=== PATIENT | male | born 1950 | race Caucasian/White ===

== ENCOUNTER 2025-02-10 15:53 | Inpatient (IN) | payer MEDICARE ==
[~2025-02-10] VITALS: Ht 180.3 cm; Wt 94.0 kg
[2025-02-10 16:21] LABS: BASOPHILS ABSOLUTE AUTO 0.08 K/mm3 (0.00-0.23); BASOPHILS PERCENT AUTO 1 % (0-2); EOSINOPHILS PERCENT AUTO 1 % (0-6); Hematocrit 41.5 % (37.0-53.0); IMMATURE GRAN ABSOLUTE AUTO 0.07 K/mm3 (0.00-0.10); IMMATURE GRAN PERCENT AUTO 1 % (0-1); LYMPHOCYTES ABSOLUTE AUTO 2.02 K/mm3 (0.84-5.20); LYMPHOCYTES PERCENT AUTO 13 % (21-46); MONOCYTES ABSOLUTE AUTO 0.69 K/mm3 (0.16-1.47); MONOCYTES PERCENT AUTO 4 % (4-13); Mean Corpuscular HGB 26.1 pg (26.0-34.0); Mean Corpuscular HGB Conc 31.3 g/dL (31.5-36.5); Mean Corpuscular Volume 83 fL (80-100); Mean Platelet Volume 10.7 fL (9.1-12.4); NEUTROPHILS ABSOLUTE AUTO 12.45 K/mm3 (1.96-9.15); NEUTROPHILS PERCENT AUTO 80 % (41-73); Platelet Count 341 K/mm3 (150-400); RDW Coefficient Variation 15.3 % (11.7-14.2); RDW Standard Deviation 46.2 fL (35.1-46.3); Red Blood Cell Count 4.99 M/mm3 (4.30-5.90); White Blood Cell Count 15.51 K/mm3 (4.00-11.30)
[2025-02-10 16:40] LABS: Ethanol (Alcohol), Blood, Med <3 mg/dL
[2025-02-10 16:43] LABS: Alanine Aminotransfer (ALT/SGP 40 U/L (12-78); Albumin, Blood 2.8 g/dL (3.4-5.0); Albumin/Globulin Ratio 0.6 (0.8-1.8); Alk Phos 112 U/L (50-136); Anion Gap 15 mmol/L (3-11); Aspartate Aminotrans (AST/SGOT 55 U/L (12-37); Bilirubin, Total 0.9 mg/dL (0.1-1.0); Blood Urea Nitrogen 28 mg/dL (8-24); Bun/Creatinine Ratio 19.2 (12.0-20.0); CO2, Blood 27 mmol/L (21-32); Chloride, Blood 102 mmol/L (98-108); Creatinine, Blood 1.46 mg/dL (0.60-1.20); Globulin, Blood 4.5 g/dL (2.2-4.0); Glomerular Filtration Rate 50 (60-); Glucose, Blood 102 mg/dL (70-99); Potassium, Blood 2.9 mmol/L (3.5-5.5); Sodium, Blood 141 mmol/L (136-145); Total Protein, Blood 7.3 g/dL (6.4-8.2)
[2025-02-10] MEDS ORDERED: Potassium Chloride 40 MEQ in NS 250 ML IV ONE (17:25)
[2025-02-10] MEDS ORDERED: Lactated Ringer's 1,000 ML IV ONE ×2 (17:25→19:25)
[2025-02-10 17:52] LABS: Magnesium, Blood 2.5 mg/dL (1.6-2.4)
[2025-02-10 20:43] LABS: Source, Urine Clean Catch
[2025-02-10 20:46] LABS: Bilirubin, Urine Neg (Neg); Blood, Urine 2+ (Neg); Glucose Qualitative, Urine Neg (Neg); Ketones, Urine 2+ (Neg); Leukocyte Esterase, Urine Neg (Neg); Nitrite, Urine Neg (Neg); Protein, Urine 2+ (Neg); Specific Gravity, Urine 1.015 (1.003-1.022); Urobilinogen, Urine 1+ (Normal)
[2025-02-10 20:53] LABS: Amorphous Light (0-Heavy); Appearance, Urine Hazy (Clear); Bacteria Rare /hpf; Color, Urine Yellow (P-Yellow); Hyaline Casts 25-50 /lpf (0-2); Mucus Not Seen (0-Heavy); Red Blood Cells, Urine 0-2 /hpf (0-2); Squamous Epithelial Cells Few /hpf (Few); White Blood Cells, Urine 0-2 /hpf (0-5)
[2025-02-10 20:56] LABS: U Amphetamine Screen Not Detected; U Barbituate Screen Not Detected; U Benzodiazapine Screen Not Detected; U Buprenorphine Screen Not Detected; U Cannabinoids Screen Not Detected; U Cocaine Screen Not Detected; U Methadone Screen Not Detected; U Methamphetamine Screen Not Detected; U Opiates Screen Not Detected; U Oxycodone Screen Not Detected; U Phencyclidine Screen Not Detected
[2025-02-10] MEDS ORDERED: Metoprolol Tartrate 25 MG Tab PO SCH (21:00)
[2025-02-10] MEDS ORDERED: Metoprolol Tartrate 1 MG/ML 5 ML VIAL IV ONE ×2 (21:00→22:15)
[2025-02-10] MEDS ORDERED: Ondansetron HCl 2 MG / ML 2ML Vial IV PRN (21:10)
[2025-02-10] MEDS ORDERED: NS 1,000 ML IV SCH (21:15)
[2025-02-10] MEDS ORDERED: Potassium Chloride 20 MEQ TabCR PO ONE (22:00)
[2025-02-10 22:05] LABS: Thyroid Stimulating Hormone 0.937 uIU/mL (0.360-4.800)
[2025-02-10 22:38] VITALS: BP 131/90
[2025-02-10 23:24] VITALS: BP 111/91
--- NOTE | 2025-02-10 23:41 | NUR ---
ASSUMPTION OF CARE REPORT RECIEVED FROM KIERSTEN BACON. PT ARRIVEDTO PCU VIA GUNERY AND WAS SLID TO PCU BED. PT ALERT, ORIETNED TO NAME/, LOCATION, SITUATION. PT DENIES ANY MEDICATION/MEDICAL HX. HR IN THE 80'S-120'S, AFIB. HE DENIES ANY CP/PRESSURE, NUMB/TINGLING, SBP STABLE. O2 >92% ON RA, DENIES ANY SOB. +BS, HE REPORTS TENDER/PAIN OF LEFT LOWER ABD. HE REPORTS THE PAIN STARTED AFTER HE FELL AT HOME BEFORE COMIGN HERE. PT UP AND AMBULATED TO BATHROOM WITH SBA AND FWW. HE HAS NS RUNNING PER EMAR. HE DENIES ANY QUESTIONS AT THIS TIME. PT ORIENTED TO ROOM/CALL LIGHT. CALL LIGHT IN REACH. WILL MONITOR PT.
[2025-02-11 00:34] VITALS: BP 128/74
[2025-02-11 04:09] VITALS: BP 149/94
[2025-02-11 05:15] LABS: BASOPHILS ABSOLUTE AUTO 0.06 K/mm3 (0.00-0.23); BASOPHILS PERCENT AUTO 0 % (0-2); EOSINOPHILS PERCENT AUTO 3 % (0-6); Hematocrit 36.8 % (37.0-53.0); Hemoglobin 11.4 g/dL (13.5-17.5); IMMATURE GRAN ABSOLUTE AUTO 0.08 K/mm3 (0.00-0.10); IMMATURE GRAN PERCENT AUTO 1 % (0-1); LYMPHOCYTES ABSOLUTE AUTO 1.63 K/mm3 (0.84-5.20); LYMPHOCYTES PERCENT AUTO 11 % (21-46); MONOCYTES ABSOLUTE AUTO 0.73 K/mm3 (0.16-1.47); MONOCYTES PERCENT AUTO 5 % (4-13); Mean Corpuscular HGB 26.1 pg (26.0-34.0); Mean Corpuscular Volume 84 fL (80-100); Mean Platelet Volume 11.1 fL (9.1-12.4); NEUTROPHILS PERCENT AUTO 80 % (41-73); Platelet Count 274 K/mm3 (150-400); RDW Coefficient Variation 15.6 % (11.7-14.2); Red Blood Cell Count 4.37 M/mm3 (4.30-5.90)
--- NOTE | 2025-02-11 05:26 | NUR ---
SHIFT SUMMARY PT ALERT, ORIENTED TO SELF, PLACE, SITUATION, BUT UNSURE OF YEAR. HR IN THE 70'S-90'S, AFIB. DENIES CP/PRESSURE, NUMB/TINGLING, SBP STABLE. O2 >92% ON RA, HE DENIES ANY SOB. PT DOES STILL HAVE SOME RIGHT SIDED ABD PAIN R/T FALL AT HOME PRIOR TO ADMISSION, NO BRUISING IN THE AREA. NS RUNNING PER EMAR. NO ACUTE CAHNGES T/O SHIFT. PT DENIES ANY QUESTIONS OR CONCERNS AT THIS TIME. WILL MONITOR PT AND REPORT TO ONCOMING RN.
[2025-02-11 05:29] LABS: International Normalized Ratio 1.09; Prothrombin Time Results 11.6 Sec (9.7-11.5)
[2025-02-11 05:44] LABS: Magnesium, Blood 2.1 mg/dL (1.6-2.4)
[2025-02-11 05:45] LABS: Albumin, Blood 2.3 g/dL (3.4-5.0); Albumin/Globulin Ratio 0.6 (0.8-1.8); Bilirubin, Total 0.5 mg/dL (0.1-1.0); Bun/Creatinine Ratio 20.4 (12.0-20.0); Calcium, Blood 8.1 mg/dL (8.5-10.1); Creatinine, Blood 1.37 mg/dL (0.60-1.20); Globulin, Blood 3.9 g/dL (2.2-4.0); Potassium, Blood 2.9 mmol/L (3.5-5.5); Total Protein, Blood 6.2 g/dL (6.4-8.2)
[2025-02-11] MEDS ORDERED: Potassium Chloride 20 MEQ TabCR PO ONE (06:00)
[2025-02-11] MEDS ORDERED: Potassium Chloride 40 MEQ in NS 250 ML IV ONE (06:30)
--- NOTE | 2025-02-11 06:51 | NUR ---
UPDATE PT HAD MORNING LABS. POTASSIUM CAME BACK AT 2.9. PROVIDER CALLED AND NOTIFIED. ORDERS FOR 40 MEQ OF POTASSIUM AND 40 MEQ IV POTASSIUM PLACED AND BMP FOR 1230 TODAY TO RECHECK LEVELS. WILL MONITOR PT.
[2025-02-11] MEDS ORDERED: Polyethylene Glycol 3350 17 gm PO PRN (07:55)
[2025-02-11] MEDS ORDERED: Acetaminophen 325 MG TABLET PO PRN (07:55)
[2025-02-11] MEDS ORDERED: TraZODone HCl 50 MG Tab PO PRN (07:55)
[2025-02-11] MEDS ORDERED: HYDROmorphone HCl/Pf 1MG SYR IV PRN (07:55)
[2025-02-11] MEDS ORDERED: OxyCODONE HCL 5 MG TAB PO PRN (07:55)
[2025-02-11] MEDS ORDERED: Enoxaparin 40 MG/0.4 ML SYR SC SCH (08:00)
[2025-02-11] MEDS ORDERED: Labetalol HCL 5 MG/ML 4ML Injection (Single Dose) IV PRN (08:05)
[2025-02-11 08:16] VITALS: BP 120/99
[2025-02-11] MEDS ORDERED: Docusate Sodium/Senna 1 Tab PO SCH (09:00)
[2025-02-11 11:27] VITALS: BP 128/86
[2025-02-11 13:10] LABS: Bun/Creatinine Ratio 21.6 (12.0-20.0); Calcium, Blood 7.9 mg/dL (8.5-10.1); Creatinine, Blood 1.16 mg/dL (0.60-1.20); Potassium, Blood 3.5 mmol/L (3.5-5.5)
[2025-02-11 15:50] VITALS: BP 125/73
--- NOTE | 2025-02-11 18:04 | NUR ---
End of shift note. Pt was very sleepy this morning but has been more awake this afternoon. Pt is A&O2-3, with noted forgetfulness. Possible [place] or maybe selective hearing. Pt seems to only respond when he wants to. Difficult to determine true mentation because he talks so little. Pt has been OOB multiple times ambulating to the bathroom, SBA with FWW for safety and cord management. Pt does attempt to get OOB without calling, bed alarm is active. Fair PO intake this shift. Fair output. Pt gave verbal permission to give an update to friend/neighbor Kwadwo ([phone]). She stated that she would be willing to give him a ride home at time of discharge. She also reported that he lives a very isolated lifestyle at baseline and rarely talks to anyone. No outside friends or family that she is aware of. According to Kwadwo, Pts house was in a state of disarray when EMS came to check on him. She is going to follow up with the Director Of Home Health Services's office. Pt is able to make needs known, call light is within reach but Pt has yet to use the call light button. Education provided.
[2025-02-11 19:34] VITALS: BP 117/79
[2025-02-12 00:15] VITALS: BP 139/85
[2025-02-12 03:44] VITALS: BP 134/80
--- NOTE | 2025-02-12 05:36 | NUR ---
SHIFT SUMMARY PT ALERT, ORIENTED TO SELF, PLACE, SITUATION, UNABLE TO STATE YEAR. HE IS CONFUSED AT TIMES. PT EDUCATED ON IMPORTANCE OF USING CALL LIGHT WHEN HE HAS TO GO TO THE BATHROOM BUT HE DOES NOT USE CALL LIGHT. BED ALARM ON. HR IN THE 80'S, WAP RHYTHM. HE DENIES ANY CP/PRESSURE, NUMB/TINLING, SBP STABLE. 02 >90% ON RA, HE DENIES ANY SOB. HE DOES HAVE SOME RIGHT SIDED ABD PAIN, HE REPORTS FALLING ON THAT SIDE AT HOME. +BS, HE DENIES ANY N/V. PT HAS HAD 2 EPISODES OF LOOSE STOOLS T/O SHIFT. PT HAS FLUIDS INFUSING AT 100. HE DENIES ANY QUESTIONS. BED IN LOWEST POSITION, BED ALARM ON, CALL LIGHT IN REACH. WILL MONITOR PT AND REPORT TO ONCOMING RN.
[2025-02-12 06:14] LABS: BASOPHILS ABSOLUTE AUTO 0.07 K/mm3 (0.00-0.23); BASOPHILS PERCENT AUTO 1 % (0-2); EOSINOPHILS ABSOLUTE AUTO 0.35 K/mm3 (0.00-0.68); EOSINOPHILS PERCENT AUTO 3 % (0-6); Hematocrit 32.9 % (37.0-53.0); Hemoglobin 10.2 g/dL (13.5-17.5); IMMATURE GRAN ABSOLUTE AUTO 0.08 K/mm3 (0.00-0.10); IMMATURE GRAN PERCENT AUTO 1 % (0-1); LYMPHOCYTES PERCENT AUTO 12 % (21-46); MONOCYTES ABSOLUTE AUTO 0.82 K/mm3 (0.16-1.47); MONOCYTES PERCENT AUTO 6 % (4-13); Mean Corpuscular HGB 26.1 pg (26.0-34.0); Mean Corpuscular Volume 84 fL (80-100); Mean Platelet Volume 11.1 fL (9.1-12.4); NEUTROPHILS ABSOLUTE AUTO 10.73 K/mm3 (1.96-9.15); NEUTROPHILS PERCENT AUTO 79 % (41-73); Platelet Count 240 K/mm3 (150-400); RDW Coefficient Variation 15.7 % (11.7-14.2); RDW Standard Deviation 47.4 fL (35.1-46.3); Red Blood Cell Count 3.91 M/mm3 (4.30-5.90); White Blood Cell Count 13.65 K/mm3 (4.00-11.30)
[2025-02-12 07:05] LABS: Magnesium, Blood 1.7 mg/dL (1.6-2.4)
[2025-02-12 07:06] LABS: Albumin, Blood 2.2 g/dL (3.4-5.0); Albumin/Globulin Ratio 0.6 (0.8-1.8); Bilirubin, Total 0.5 mg/dL (0.1-1.0); Bun/Creatinine Ratio 17.1 (12.0-20.0); Calcium, Blood 7.8 mg/dL (8.5-10.1); Creatinine, Blood 1.11 mg/dL (0.60-1.20); Globulin, Blood 3.7 g/dL (2.2-4.0); Phosphorus, Blood 1.9 mg/dL (2.5-4.9); Total Protein, Blood 5.9 g/dL (6.4-8.2)
[2025-02-12 08:16] VITALS: BP 131/77
[2025-02-12] MEDS ORDERED: Potassium Chloride 10 Meq Tablet SA PO ONE (09:10)
[2025-02-12] MEDS ORDERED: Potassium Phosphate Dibasic 30 MM in Dextrose 5% 500 ML IV STA (09:15)
[2025-02-12 11:37] VITALS: BP 139/70
[2025-02-12 16:49] VITALS: BP 127/95
[2025-02-12 16:57] LABS: Hematocrit 36.6 % (37.0-53.0); Hemoglobin 11.4 g/dL (13.5-17.5); Mean Corpuscular HGB Conc 31.1 g/dL (31.5-36.5); Mean Corpuscular Volume 83 fL (80-100); Mean Platelet Volume 10.9 fL (9.1-12.4); Platelet Count 232 K/mm3 (150-400); RDW Coefficient Variation 15.7 % (11.7-14.2); RDW Standard Deviation 47.5 fL (35.1-46.3); Red Blood Cell Count 4.39 M/mm3 (4.30-5.90); White Blood Cell Count 12.19 K/mm3 (4.00-11.30)
[2025-02-12 17:13] LABS: Bun/Creatinine Ratio 14.3 (12.0-20.0); Calcium, Blood 7.7 mg/dL (8.5-10.1); Creatinine, Blood 1.12 mg/dL (0.60-1.20); Phosphorus, Blood 3.8 mg/dL (2.5-4.9); Potassium, Blood 3.4 mmol/L (3.5-5.5)
[2025-02-12] MEDS ORDERED: NS 1,000 ML IV ONE (17:40)
[2025-02-12 17:52] LABS: Base Excess Venous 0 mmol/L; PCO2 Venous 39.9 mmHg (38-42)
--- NOTE | 2025-02-12 18:09 | NUR ---
SHIFT SUMMARY PT A/OX3 AT BEGINNING OF SHIFT, PT MORE CONFUSED TOWARDS END OF SHIFT. PT DID NOT USE CALL LIGHT AT ALL DURING SHIFT, SET OFF BED ALARM MULTIPLE TIMES. PT ABLE TO AMBULATE TO BATHROOM USING FWW AND 1-2 PER ASSIST. TOWARDS END OF SHIFT, PT STOOD UP SETTING OFF BED ALRAM BUT PT WAS NOT ABLE TO ARTICULATE WHERE HE WANTED TO GO OR WHY HE STOOD UP. 3 STAFF MEMBERS WERE REQUIRED TO ASSIST PT BACK TO BED AFTER PT STOOD IN BATHROOM FOR ROUGHLY 15 MINUTES. NOTIFIED OF INCREASED CONFUSION. PUREWICK PUT IN PLACE AND PT INSTRUCTED NOT TO GET UP ON HIS OWN. NOTIFIED PT OF CURRENT IMAGING RESULTS, UNSURE IF PT IS RETAINING INFORMATION. PALLIATIVE UPDATED AND FOLLOWING CASE. NS RUNNING PER ORDER. PT RECIEVED 1L BOLUS FOR ELEVATED LACTIC PER ORDER.
[2025-02-12 19:25] VITALS: BP 167/84
[2025-02-13] VITALS (7 sets, daily range): BP systolic 127–171; BP diastolic 79–111
[2025-02-13 04:48] LABS: BASOPHILS ABSOLUTE AUTO 0.05 K/mm3 (0.00-0.23); BASOPHILS PERCENT AUTO 0 % (0-2); EOSINOPHILS ABSOLUTE AUTO 0.29 K/mm3 (0.00-0.68); EOSINOPHILS PERCENT AUTO 2 % (0-6); Hematocrit 30.8 % (37.0-53.0); Hemoglobin 9.7 g/dL (13.5-17.5); IMMATURE GRAN ABSOLUTE AUTO 0.11 K/mm3 (0.00-0.10); IMMATURE GRAN PERCENT AUTO 1 % (0-1); LYMPHOCYTES ABSOLUTE AUTO 1.89 K/mm3 (0.84-5.20); LYMPHOCYTES PERCENT AUTO 15 % (21-46); MONOCYTES ABSOLUTE AUTO 1.19 K/mm3 (0.16-1.47); MONOCYTES PERCENT AUTO 9 % (4-13); Mean Corpuscular HGB Conc 31.5 g/dL (31.5-36.5); Mean Corpuscular Volume 83 fL (80-100); Mean Platelet Volume 11.2 fL (9.1-12.4); NEUTROPHILS ABSOLUTE AUTO 9.43 K/mm3 (1.96-9.15); NEUTROPHILS PERCENT AUTO 73 % (41-73); Platelet Count 209 K/mm3 (150-400); RDW Coefficient Variation 15.8 % (11.7-14.2); RDW Standard Deviation 47.8 fL (35.1-46.3); Red Blood Cell Count 3.73 M/mm3 (4.30-5.90); White Blood Cell Count 12.96 K/mm3 (4.00-11.30)
[2025-02-13 05:07] LABS: Bun/Creatinine Ratio 13.3 (12.0-20.0); Calcium, Blood 7.3 mg/dL (8.5-10.1); Creatinine, Blood 0.98 mg/dL (0.60-1.20); Potassium, Blood 2.8 mmol/L (3.5-5.5)
--- NOTE | 2025-02-13 05:57 | NUR ---
SHIFT SUMMARY PT ALERT, ORIENTED TO NAME/, PLACE, AND WHY HE IS HERE. PT ABLE TO ANSWER ORIENTATION QUESTIONS BUT VERY CONFUSED AND NOT ABLE TO FULLY FOLLOW COMMANDS. HE IS NOT EASILY REDIRECTABLE. PT PULLING AT CORDS T/O SHIFT. BED ALARM ON. HR IN THE 80'S, WAP. HE DENIED ANY CP, NUMBNESS/TINGLING, SBP STABLE. O2 >90% ON RA, DENIED ANY SOB. PT HAS PUREWICK IN PLACE, DRAINING YELLOW URINE. PT WITH 2 LOOSE BOWEL MOVEMENTS T/O SHIFT, SMALL AMOUNT OF BLOOD NOTED IN STOOL. FLUIDS INFUSING PER EMAR. PT HAD MORNING LABS, POTASSIUM CAME BACK AT 2.8, PROVIDER NOTIFIED. ORDER PLACED FOR SUPPLEMENTAL POTASSIUM. BED IN LOWEST POSITION, CALL LIGHT IN REACH. WILL MONITOR PT AND REPORT TO ONCOMING RN.
[2025-02-13] MEDS ORDERED: Potassium Chloride 20 MEQ TabCR PO SCH (08:00)
--- NOTE | 2025-02-13 17:37 | NUR ---
PALLIATIVE CARE VISIT: MET WITH PT AT 1530 TODAY IN HIS ROOM. UPON ENTERING ROOM PT IS LYING ON HIS LEFT SIDE. REQUESTED PERMISSION TO TALK TO PT AND HE STATED "YES, GO AHEAD". INTRODUCED MYSELF AND WHAT PALLIATIVE CARE SERVICES ARE. DISCUSSED SYMPTOM MANAGEMENT WITH PT. PT STATED "NO", WHEN ASKED IF HE WAS HAVING PAIN. ATTEMPTED TO DISCUSS OTHER SYMPTOMS WITH HIM BUT WHEN ASKED IF HE EXPERIENCED NAUSEA, CONSTIPATION OR SOB HE DID NOT RESPOND TO MY QUESTIONS. ALLOWED PLENTY OF TIME TO ANSWER QUESTIONS. ASKED PT IF HE WAS HAVING DIFFICULTY FORMULATING A RESPONSE AND PT DID NOT RESPOND BUT CONTINUED TO STARE. PT DID RESPOND "YES" WHEN ASKED IF HE WAS EATING WELL. ATTEMPTED TO ELICIT A RESPONSE BY ASKING PT IF HE COULD TELL ME WHY HE WAS IN THE HOSPITAL AND WHAT THE DOCTORS HAD TOLD HIM BUT HE WOULD NOT VERBALLY RESPOND. UNABLE TO HAVE A MEANINGFUL CONVERSATION WITH PT. SPOKE TO PRIMARY RN OF CONCERNS. PRIMARY RN SUGGESTED A COG EVAL MAY BE APPROPRIATE AT THIS TIME. WE ARE UNABLE TO GET IN TOUCH WITH FAMILY. WILL NEED TO REQUEST SPORT INTERN TO DO A FAMILY SEARCH IF PT IS UNABLE TO MAKE DECISIONS FOR HIMSELF. UPDATED DR. MICHELLE AND HE AGREED TO HAVE COG EVAL DONE. ORDER PLACED.
--- NOTE | 2025-02-13 18:14 | NUR ---
GROUND INSTRUCTOR ADVANCED SHIFT SUMMARY PATIENT IS ALERT AND ORIENTED TO SELF AND SITUATION, OCCASIONALLY ABLE TO FOLLOW COMMANDS AND MAKE NEEDS KNOWN, ORIENTATION HAS BEEN LABILE THROUGHOUT SHIFT. TELE IN PLACE, SINUS ARRHYTHMIA IN THE 'S, DENIES PRESENCE OF CHEST PAIN OR PRESSURE. SPO2 >90% ON ROOM AIR. PATIENT IS INCONTINENT OF BOWEL AND URINE, MALE PUREWICK CATHETER INTACT AND DRAINING TO SUCTION, MULTIPLE LOOSE STOOLS TODAY. PATIENT DENIES PRESENCE OF NAUSEA. MILD EDEMA NOTED IN BLE, REDDENED AREAS NOTED ON BILATERAL ANKLES, HEAL PROTECTORS IN PLACE. PATIENT SITTING UP IN BED, CALL LIGHT WITHIN REACH.
[2025-02-14 00:39] VITALS: BP 147/99
[2025-02-14 03:34] VITALS: BP 149/98
[2025-02-14 05:16] LABS: BASOPHILS ABSOLUTE AUTO 0.04 K/mm3 (0.00-0.23); BASOPHILS PERCENT AUTO 0 % (0-2); EOSINOPHILS ABSOLUTE AUTO 0.26 K/mm3 (0.00-0.68); EOSINOPHILS PERCENT AUTO 2 % (0-6); Hemoglobin 10.7 g/dL (13.5-17.5); IMMATURE GRAN ABSOLUTE AUTO 0.11 K/mm3 (0.00-0.10); IMMATURE GRAN PERCENT AUTO 1 % (0-1); LYMPHOCYTES PERCENT AUTO 12 % (21-46); MONOCYTES ABSOLUTE AUTO 1.34 K/mm3 (0.16-1.47); MONOCYTES PERCENT AUTO 8 % (4-13); Mean Corpuscular HGB 25.8 pg (26.0-34.0); Mean Corpuscular HGB Conc 31.5 g/dL (31.5-36.5); Mean Corpuscular Volume 82 fL (80-100); NEUTROPHILS ABSOLUTE AUTO 12.41 K/mm3 (1.96-9.15); NEUTROPHILS PERCENT AUTO 77 % (41-73); Platelet Count 187 K/mm3 (150-400); RDW Coefficient Variation 15.9 % (11.7-14.2); RDW Standard Deviation 47.6 fL (35.1-46.3); Red Blood Cell Count 4.14 M/mm3 (4.30-5.90); White Blood Cell Count 16.06 K/mm3 (4.00-11.30)
[2025-02-14 05:39] LABS: Albumin, Blood 2.1 g/dL (3.4-5.0); Anion Gap 10 mmol/L (3-11); Blood Urea Nitrogen 11 mg/dL (8-24); Bun/Creatinine Ratio 10.4 (12.0-20.0); CO2, Blood 22 mmol/L (21-32); Chloride, Blood 108 mmol/L (98-108); Creatinine, Blood 1.06 mg/dL (0.60-1.20); Glomerular Filtration Rate 73 (60-); Glucose, Blood 95 mg/dL (70-99); Phosphorus, Blood 2.3 mg/dL (2.5-4.9); Potassium, Blood 3.1 mmol/L (3.5-5.5); Sodium, Blood 137 mmol/L (136-145)
--- NOTE | 2025-02-14 06:35 | NUR ---
PT STABLE THROUGHOUT THE SHIFT. PT AOX2-3, ORIENTATION IS LABILE. PT IS COOPERATIVE BUT DOES PULL OFF MONITORING EQUIPMENT OCCASSIONALLY. VITALS SIGNS WNL EXCEPT TEMP WITH MILD ELEVATION. PT REMAINS INCONTINENT TO BOTH BOWEL AND BLADDER, SKIN REMAINS INTACT. PT ON ROOM AIR. PT CONTINUES TO TOLERATE IV FLUIDS WELL. PT ABLE TO TAKE PILLS WHOLE WITH WATER.
[2025-02-14 07:48] VITALS: BP 118/89
[2025-02-14] MEDS ORDERED: Potassium Chl 20MEQ/Water100ML 100 ML IV STA (08:54)
--- NOTE | 2025-02-14 10:40 | NUR ---
DR. MICHELLE AT BEDSIDE TO SEE PATIENT. DOCTOR TALKED TO PATIENT IN REGARDS TO TREATMENT RELATED TO HIS COLON CANCER-PATIENT STATED HE WANTS TO DO THE BIOPSY AND TO DO TREATMENT FOR HIS CANCER. PATIENT REPORTS THAT HE WANTS TO GO HOME AND LIVES ALONE. PT/OT ARE ORDERED AND TO ASSESS PATIENT, COG EVAL TO BE COMPLETED TODAY.
[2025-02-14] MEDS ORDERED: ZINC OXIDE/PETROLATUM, YELLOW 1 APPLIC/71 GM PASTE TOP PRN (10:55)
[2025-02-14] MEDS ORDERED: Potassium Phosphate Dibasic 15 MM in Dextrose 5% 250 ML IV SCH (11:00)
[2025-02-14 11:43] VITALS: BP 109/73
--- NOTE | 2025-02-14 15:35 | NUR ---
PALLIATIVE CARE VISIT: PT AGREEABLE TO TALK THIS MORNING. HE WOULD ANSWER QUESTIONS UNTIL GOALS OF CARE WERE BROUGHT UP ABOUT HIS ILLNESS. PT STOPPED TALKING AND CLOSED HIS EYES AND NO FURTHER COMMUNICATION FROM PT DESPITE ATTEMPTS TO ELICIT A CONVERSATION. NOTIFIED DR. MICHELLE OF OUR CONVERSATION.
[2025-02-14 15:53] VITALS: BP 123/92
--- NOTE | 2025-02-14 17:53 | NUR ---
SHIFT SUMMARY. PATIENT IS A&OX2-3 WITH CONFUSION; PATIENT CAN ANSWER MOST ORIENTATION QUESTIONS APPROPRIATELY BUT IS CONFUSED WITH DATE. PATIENT APPEARS TO BECOME MORE CONFUSED THE DAY PROGRESSES ONWARD. PATIENT HAS A FLAT AFFECT AND WILL NOT ANSWER QUESTIONS OR RESPOND TO QUESTIONS THAT HE DOES NOT WANT TO ANSWER. DR. MICHELLE TALKED WITH PATIENT ABOUT WORKING WITH PHYSICAL THERAPY AND OCCUPATIONAL THERAPY-PATIENT ACKNOWLEDGED AND AGREED HE WANTS TO GO HOME-PATIENT WORKED WITH OCCUPATIONAL THERAPY BUT REFUSED TO RESPOND TO PHYSICAL THERAPIST. PATIENT TAKES MEDS WHOLE WITH WATER. PATIENTS POTASSIUM LOW THIS MORNING AND REPLACED THIS SHIFT-SEE EMAR OR ORDERS. PATIENT NOT USING CALL LIGHT-FREQUENT CHECKS. BED IS LOCKED IN THE LOWEST POSITION WITH CALL LIGHT IN REACH. CARE IS ONGOING.
[2025-02-14 19:53] VITALS: BP 120/71
[2025-02-15] VITALS (7 sets, daily range): BP systolic 125–158; BP diastolic 66–93
[2025-02-15 04:24] LABS: BASOPHILS ABSOLUTE AUTO 0.04 K/mm3 (0.00-0.23); BASOPHILS PERCENT AUTO 0 % (0-2); EOSINOPHILS ABSOLUTE AUTO 0.57 K/mm3 (0.00-0.68); EOSINOPHILS PERCENT AUTO 5 % (0-6); Hematocrit 30.1 % (37.0-53.0); Hemoglobin 9.6 g/dL (13.5-17.5); IMMATURE GRAN ABSOLUTE AUTO 0.09 K/mm3 (0.00-0.10); IMMATURE GRAN PERCENT AUTO 1 % (0-1); LYMPHOCYTES ABSOLUTE AUTO 1.86 K/mm3 (0.84-5.20); LYMPHOCYTES PERCENT AUTO 17 % (21-46); MONOCYTES ABSOLUTE AUTO 1.09 K/mm3 (0.16-1.47); MONOCYTES PERCENT AUTO 10 % (4-13); Mean Corpuscular HGB 25.9 pg (26.0-34.0); Mean Corpuscular HGB Conc 31.9 g/dL (31.5-36.5); Mean Corpuscular Volume 81 fL (80-100); Mean Platelet Volume 10.4 fL (9.1-12.4); NEUTROPHILS ABSOLUTE AUTO 7.31 K/mm3 (1.96-9.15); NEUTROPHILS PERCENT AUTO 67 % (41-73); Platelet Count 166 K/mm3 (150-400); RDW Standard Deviation 47.3 fL (35.1-46.3); Red Blood Cell Count 3.71 M/mm3 (4.30-5.90); White Blood Cell Count 10.96 K/mm3 (4.00-11.30)
[2025-02-15 04:41] LABS: Albumin, Blood 1.7 g/dL (3.4-5.0); Anion Gap 10 mmol/L (3-11); Blood Urea Nitrogen 13 mg/dL (8-24); Bun/Creatinine Ratio 11.9 (12.0-20.0); CO2, Blood 20 mmol/L (21-32); Chloride, Blood 110 mmol/L (98-108); Creatinine, Blood 1.09 mg/dL (0.60-1.20); Glomerular Filtration Rate 70 (60-); Glucose, Blood 95 mg/dL (70-99); Phosphorus, Blood 2.1 mg/dL (2.5-4.9); Sodium, Blood 137 mmol/L (136-145)
--- NOTE | 2025-02-15 06:21 | NUR ---
PT STABLE THROUGHOUT SHIFT. AOX2-3, COOPERATIVE, ABLE TO MAKE NEEDS KNOWN BUT UNABLE TO USE CALL LIGHT EFFECTIVELY. PT DID HAVE INCONTINENCE OF BOWEL AND URINE. PT WAS BRIEF AND BED PAD CHANGED, NEW PUREWICK PLACED. PT ABLE TO ASSIST MINIMALLY WITH TURNS. VITAL SIGNS WNL. PT TOLERATING IV FLUIDS WELL, WITH GOOD URINARY OUTPUT. BED ALARM ON, UPPER SIDE RAILS UP. BED IN LOWEST POSITION WITH BRAKES ON.
--- NOTE | 2025-02-15 14:41 | NUR ---
SHIFT SUMMARY/TRANSFER OF CARE TO RAMIN Burgos RN PATIENT IS A&OX3 WITH CONFUSION TO DATE. PATIENT IS ABLE TO MAKE HIS NEEDS KNOWN ALTHOUGH HE CAN BE IMPULSIVE WHEN HE NEEDS TO URINATE-BED ALARM IS ON FOR PATIENT SAFETY. PATIENT HAS BEEN MORE AWAKE TODAY AND TALKATIVE, ANSWERING QUESTIONS AND CONVERSING WITH STAFF. OT WORKED WITH PATIENT TODAY, PATIENT RECEPTIVE. PATIENT UP TO BATHROOM WITH THIS RN USING FWW-PATIENT DID WELL ON FEET AND STEADY TO BATHROOM, PATIENT DID REQUIRE ASSISTANCE IN PERICARE FOLLOWING BOWEL MOVEMENT. WHEN PATIENT UP STANDING IN THE BATHROOM PATIENT BECAME WEAKER AND LESS STEADY WITH AMBULATION. PATIENT UP TO CHAIR FOR BREAKFAST. PATIENTS APPETITE HAS BEEN WELL TODAY, PATIENT NOT TAKING IN MUCH FLUID ORALLY-IS RECEIVING IV FLUIDS PER ORDER. PATIENT IS PLEASANT AND COOPERATIVE WITH CARE TODAY. PUMPS CLEARED AND DOCUMENTED. UPDATES GIVEN TO RAMIN Burgos RN. PATIENT IS IN BED WITH BED ALARM ON, CALL LIGHT IS IN REACH, CARE NEEDS ASSESSED; PATIENT DENIES NEEDS AT THIS TIME. PATIENT NOTIFIED THAT THIS RN WILL BE LEAVING AND RAMIN WILL BE TAKING OVER PRIMARY CARE.
--- NOTE | 2025-02-15 14:46 | NUR ---
"Spiritual Care | Pt. request Pt. is awake in bed an welcomes my visit. Attempted to facilitate a short life revie, but Pt. was pretty guarded with his response. Pt. did welcome prayer. Prayed with Pt. Pt. verbalized gratitude for the spsiritual care visit and welcomed this fur cleaner to return."
--- NOTE | 2025-02-15 19:31 | NUR ---
EOS: ONLY CHANGES FROM PREIVOUS RN WAS PATIENT WITH SOME EXERTIONALLY INCREASED HR. NO S/S OF CHEST PAIN PRESSUR OR SOB. NS STILL INFUSING. DID REQUIRE SOME TYLENOL T.MAX OF 101.7 DROPPED TO ~100.1 ON SHIN NO OTHER ACUTE CONCERNS NOTED OTHER SANCHEZ.
--- NOTE | 2025-02-15 22:13 | NUR ---
PT STABLE, VITAL SIGNS WNL. PT AOX3, ABLE TO MAKE NEEDS KNOWN BUT UNABLE TO USE THE CALL LIGHT SUCCESSFULLY. PT INCONTINENT TO BOWEL AND BLADDER, PUREWICK IN PLACE. PT ON TELEMETRY WITH SINUS ARRHYTHMIA. PT AFEBRILE AT THIS TIME. PT ABLE TO TAKE PILLS WHOLE WITH WATER. IV FLUIDS INFUSING W/O PROBLEM. PT TO BE TRANSFERRED TO MEDICAL FLOOR ROOM 345 AND REPORT GIVEN TO ARLEEN WOODY.
[2025-02-16 01:39] VITALS: BP 149/79
--- NOTE | 2025-02-16 04:53 | NUR ---
SHIFT SUMMARY PATIENT IS ALERT AND ORIENTED 2-3X. PATIENT HAS HAD NO ACUTE EVENTS THIS SHIFT. VITAL SIGNS REVIEWED. PATIENT IS A TRANSFER FROM PCU. PATIENT HAS BEEN SLEEPING SINCE TRANSFER. IV FLUIDS INFUSED ORDERED. NO EVENTS ON TELE. PATIENT HAS HAD NO COMPLAINTS OF PAIN, NAUSEA, SOB OR VOMITTING THIS SHIFT. BED IN LOCKED AND LOWEST POSITION.
[2025-02-16 05:45] VITALS: BP 140/75
[2025-02-16 07:33] VITALS: BP 145/80
[2025-02-16 15:21] VITALS: BP 186/156
[2025-02-16 15:31] VITALS: BP 170/85
[2025-02-16] MEDS ORDERED: METO25 PO (16:20)
--- NOTE | 2025-02-16 16:34 | NUR ---
NOTE PT ALERT, COOPERATIVE. FOLLOWS SOME DIRECTIONS. AFFECT FLAT. NON CONVERSANT BUT ANSWERS QUESTIONS. POOR APPETITE. UP IN CHAIR WITH 1 ASSIST. STEADY AND SLOW. CHAIR ALARM ON. RETURNED TO BED WITH 1 ASSIST. DENIED DISCOMFORT. TOE NAILS LONG. ONE TOE NAIL CURLS ALL AROUND THE TIP. ASKED IF PODIATRY WOULD COME AND DO TOE NAILS. WAS TOLD NO. TELELMETRY ON. PT HEART JUSTA SR 1AVB WITH PAC. CARE ONGOING.
[2025-02-16 19:34] VITALS: BP 160/87
[2025-02-17 00:04] VITALS: BP 129/79
[2025-02-17 04:53] VITALS: BP 130/87
--- NOTE | 2025-02-17 06:37 | NUR ---
345 SHIFT SUMMARY AT START OF SHIFT, PT PULLED IV OUT OF RIGHT FOREARM. STILL HAS ONE IN LAC, SO WILL MONITOR FOR NEED FOR SECOND IV. APPROX 2029, PT UP TO BSC. BRIEF CHANGED AND PUREWIC SUCTION INCREASED, IT WAS NOT DRAINING PROPERLY. PT BACK IN BED AND RESTING. APPROX 2014, PT UP TO BSC. HAD SMALL MUCOUSY BM. PT BACK IN BED RESTING. PT STAYED IN BED FOR REMAINDER OF SHIFT. HAS BEEN PLEASANT AND COOPERATIVE WITH CARE. WILL RELAY TO DAY SHIFT.
[2025-02-17 07:45] VITALS: BP 144/104
[2025-02-17 07:49] VITALS: BP 156/94
--- NOTE | 2025-02-17 11:45 | NUR ---
report to [facility] report given to noris at [facility]. patient d/c with all belongings via wc. no iv, and clean brief
== END 2025-02-17 11:38 | DRG 375 ==
LOC: ER 15:53 → PCU 21:09 → MEDS 02-15 21:30 → ENPENDDIS 02-16 16:53 → MEDS 02-17 11:38
PROVIDERS: Emergency Medicine; Family Medicine; Hospitalist; Nurse Practitioner Acute Care; Student in an Organized Health Care Education/Training Program; ADMIT Student in an Organized Health Care Education/Training Program
DX: C18.9 Malignant neoplasm of colon, unspecified (principal); C78.02 Secondary malignant neoplasm of left lung; N17.9 Acute kidney failure, unspecified; C78.7 Secondary malignant neoplasm of liver and intrahepatic bile duct; R65.10 Systemic inflammatory response syndrome (SIRS) of non-infectious origin without acute organ dysfunction; E87.20 Acidosis, unspecified; K92.2 Gastrointestinal hemorrhage, unspecified; K80.20 Calculus of gallbladder without cholecystitis without obstruction; F17.210 Nicotine dependence, cigarettes, uncomplicated; M25.551 Pain in right hip; G31.84 Mild cognitive impairment of uncertain or unknown etiology; R62.7 Adult failure to thrive; I48.91 Unspecified atrial fibrillation; E87.6 Hypokalemia; Z68.29 Body mass index [BMI] 29.0-29.9, adult; Z98.890 Other specified postprocedural states
CPT/HCPCS: 36415; 70470; 71260; 74177; 76705; 80048; 80053; 80069; 80320; 81001; 82378; 82550; 82803; 83605; 83690; 83735; 83880; 84100; 84443; 85025; 85027; 85610; 85730; 87040; 93005; 93010; 93306; 96361; 96365-59; 96366; 97110; 97116; 97129; 97161; 97165; 97530; 97535; 99285-25; A9270; G0378; J1650; J3480; J7030; J7050; J7060; J7120; Q9967

== ENCOUNTER 2025-04-04 01:41 | Inpatient (IN) | payer MEDICARE ==
[~2025-04-04] VITALS: Ht 180.3 cm; Wt 101.0 kg
[~2025-04-04 01:41] MED LIST: METO25 PO
[2025-04-04 02:13] LABS: BASOPHILS ABSOLUTE AUTO 0.07 K/mm3 (0.00-0.23); BASOPHILS PERCENT AUTO 0 % (0-2); EOSINOPHILS ABSOLUTE AUTO 0.05 K/mm3 (0.00-0.68); EOSINOPHILS PERCENT AUTO 0 % (0-6); Hematocrit 29.7 % (37.0-53.0); Hemoglobin 9.4 g/dL (13.5-17.5); IMMATURE GRAN ABSOLUTE AUTO 0.24 K/mm3 (0.00-0.10); IMMATURE GRAN PERCENT AUTO 1 % (0-1); LYMPHOCYTES ABSOLUTE AUTO 4.03 K/mm3 (0.84-5.20); LYMPHOCYTES PERCENT AUTO 15 % (21-46); MONOCYTES ABSOLUTE AUTO 2.13 K/mm3 (0.16-1.47); MONOCYTES PERCENT AUTO 8 % (4-13); Mean Corpuscular HGB Conc 31.6 g/dL (31.5-36.5); Mean Corpuscular Volume 80 fL (80-100); NEUTROPHILS ABSOLUTE AUTO 21.34 K/mm3 (1.96-9.15); NEUTROPHILS PERCENT AUTO 77 % (41-73); NRBC ABSOLUTE 0.00 K/mm3 (0.00-0.02); NRBC Auto 0.0 /100 WBC (0.0-0.2); Platelet Count 458 K/mm3 (150-400); RDW Coefficient Variation 16.1 % (11.7-14.2); RDW Standard Deviation 47.1 fL (35.1-46.3)
[2025-04-04 02:25] LABS: Alanine Aminotransfer (ALT/SGP 17.0 U/L (12-78); Albumin, Blood 1.4 g/dL (3.4-5.0); Albumin/Globulin Ratio 0.3 (0.8-1.8); Anion Gap 10.0 mmol/L (3-11); Aspartate Aminotrans (AST/SGOT 26.0 U/L (12-37); Bilirubin, Total 0.7 mg/dL (0.1-1.0); Blood Urea Nitrogen 23.0 mg/dL (8-24); CO2, Blood 24.0 mmol/L (21-32); Calcium, Blood 7.8 mg/dL (8.5-10.1); Chloride, Blood 107.0 mmol/L (98-108); Creatinine, Blood 1.1 mg/dL (0.60-1.20); Globulin, Blood 4.7 g/dL (2.2-4.0); Glucose, Blood 111.0 mg/dL (70-99); Potassium, Blood 3.6 mmol/L (3.5-5.5); Sodium, Blood 137.0 mmol/L (136-145); Total Protein, Blood 6.1 g/dL (6.4-8.2)
[2025-04-04] MEDS ORDERED: Diltiazem HCl 5 MG / ML 5ML Vial IV ONE (02:35)
[2025-04-04] MEDS ORDERED: CefTRIAXone Sodium 1,000 MG in NS 100 ML IV SCH (07:00)
[2025-04-04] MEDS ORDERED: NS 1,000 ML IV SCH (14:20)
[2025-04-04] MEDS ORDERED: Piperacillin/Tazobactam Sod 4.5 GM in NS 100 ML IV SCH (15:00)
[2025-04-04] MEDS ORDERED: Ondansetron HCl 2 MG / ML 2ML Vial IV PRN (15:40)
[2025-04-04 16:44] VITALS: BP 135/94
[2025-04-04] MEDS ORDERED: BISA10S PR (18:41)
[2025-04-04] MEDS ORDERED: MIRALAX17 GM PO (18:41)
[2025-04-04] MEDS ORDERED: MULTIPLE VITAM1 EACH PO (18:43)
[2025-04-04] MEDS ORDERED: SENN187 PO (18:44)
[2025-04-04] MEDS ORDERED: TRAM50 PO (18:45)
[2025-04-04] MEDS ORDERED: Acetaminophen650 M1 PO (18:46)
--- NOTE | 2025-04-04 18:50 | NUR ---
PT ARRIVED TO UNIT FROM ED @ 7250 . REPORT RECEIVED FROM ARLEEN COPELAND @ 7832. PT A&Ox4 AND ABLE TO MAKE NEEDS KNOWN. HE IS ON RA AND x2 ASSIST WITH TURNS IN BED. CURRENTLY NPO D/T HAVING AN OBSTRUCTION. ARLEEN FAUSTIN IN THE ROOM PLACING A POWERGLIDE. MALE PUREWICK PLACED FOR INCONTENINCE. DILTIAZEM AND LR RUNNING PER EMAR. NO NEEDS OR CONCERNS NOTED @ THIS TIME. BED IN LOW POSITION, CALL LIGHT IN REACH.
[2025-04-04 20:40] VITALS: BP 121/71
[2025-04-05] VITALS (18 sets, daily range): BP systolic 86–150; BP diastolic 59–91
[2025-04-05] MEDS ORDERED: Vancomycin (Pharmacy Consult) IV SCH (01:20)
[2025-04-05 03:46] LABS: BASOPHILS ABSOLUTE AUTO 0.07 K/mm3 (0.00-0.23); BASOPHILS PERCENT AUTO 0 % (0-2); EOSINOPHILS ABSOLUTE AUTO 0.16 K/mm3 (0.00-0.68); EOSINOPHILS PERCENT AUTO 1 % (0-6); Hematocrit 27.1 % (37.0-53.0); Hemoglobin 8.3 g/dL (13.5-17.5); IMMATURE GRAN ABSOLUTE AUTO 0.16 K/mm3 (0.00-0.10); IMMATURE GRAN PERCENT AUTO 1 % (0-1); LYMPHOCYTES ABSOLUTE AUTO 2.33 K/mm3 (0.84-5.20); LYMPHOCYTES PERCENT AUTO 10 % (21-46); MONOCYTES ABSOLUTE AUTO 1.27 K/mm3 (0.16-1.47); MONOCYTES PERCENT AUTO 5 % (4-13); Mean Corpuscular HGB Conc 30.6 g/dL (31.5-36.5); Mean Corpuscular Volume 82 fL (80-100); NEUTROPHILS ABSOLUTE AUTO 19.91 K/mm3 (1.96-9.15); NEUTROPHILS PERCENT AUTO 83 % (41-73); NRBC ABSOLUTE 0.00 K/mm3 (0.00-0.02); NRBC Auto 0.0 /100 WBC (0.0-0.2); Platelet Count 421 K/mm3 (150-400); RDW Coefficient Variation 16.2 % (11.7-14.2); RDW Standard Deviation 48.2 fL (35.1-46.3)
[2025-04-05 04:07] LABS: Alanine Aminotransfer (ALT/SGP 15.0 U/L (12-78); Albumin, Blood 1.3 g/dL (3.4-5.0); Albumin/Globulin Ratio 0.3 (0.8-1.8); Anion Gap 9.0 mmol/L (3-11); Aspartate Aminotrans (AST/SGOT 22.0 U/L (12-37); Bilirubin, Total 0.5 mg/dL (0.1-1.0); Blood Urea Nitrogen 25.0 mg/dL (8-24); CO2, Blood 24.0 mmol/L (21-32); Calcium, Blood 7.7 mg/dL (8.5-10.1); Chloride, Blood 107.0 mmol/L (98-108); Creatinine, Blood 1.08 mg/dL (0.60-1.20); Globulin, Blood 4.4 g/dL (2.2-4.0); Glucose, Blood 91.0 mg/dL (70-99); Magnesium, Blood 2.0 mg/dL (1.6-2.4); Potassium, Blood 3.4 mmol/L (3.5-5.5); Sodium, Blood 137.0 mmol/L (136-145); Total Protein, Blood 5.7 g/dL (6.4-8.2)
--- NOTE | 2025-04-05 06:39 | NUR ---
NOC SHIFT SUMMARY NO ACUTE EVENTS OVERNIGHT. ORIENTED X2-3, CALM AND COOPERATIVE. SOFT SPOKEN, DELAYED RESPONSES. VSS ON RA. ON CARDIZEM GTT UNTIL APPROXIMATELY 0400 THIS AM WHEN HE WENT INTO THE 70-80S HR. ON STANDBY. DENIES PAIN OR DISCOMFORT. NPO PENDING POSSIBLE PROCEDURE TODAY.
[2025-04-05] MEDS ORDERED: Metoclopramide HCl 5MG / ML 2ML Vial ONE (11:42)
[2025-04-05] MEDS ORDERED: Ondansetron HCl 2 MG / ML 2ML Vial ONE (11:42)
[2025-04-05] MEDS ORDERED: FentaNYL Citrate 50 MCG/ML 5 ML Injection ONE (11:42)
[2025-04-05] MEDS ORDERED: Rocuronium Bromide 10 MG/ML 5ML Injection IV ONE (11:42)
[2025-04-05] MEDS ORDERED: Bupivacaine 0.5% HCl 5 MG/ML 30MLVIAL ONE (12:07)
--- NOTE | 2025-04-05 12:33 | NUR ---
PATIENT TRANSFERED TO DAY SURGERY VIA BED PER DR VALLADARES. TELEMETRY UNINTERUPTED. PLAN TO KEEP ON TELEMETRY UNTIL TRANSFER TO OR.
--- NOTE | 2025-04-05 12:44 | NUR ---
PATIENT WAS CONSULTED IN PCU [address] MOLINA AND BY DR VALLADARES FOR EXPLORATORY LAPAROTOMY, SIGMOID COLECTOMY, COLOSTOMY, POSSIBLE LIVER BIOPSY. HOSPITALIST, DR. MCKINNEY PROVIDED SECOND PHYSICIAN SIGNITURE FOR CONSENT TO SURGERY SINCE PATIENT ALERT AND ORIENTED X2 AND NO HEALTHCARE POULTRY SERVICE TECHNICIAN TO ADVOCATE FOR PATIENT FOUND. PATIENT STATES HE WOULD LIKE TO PROCEED WITH PLANNED SURGERY.
--- NOTE | 2025-04-05 13:18 | NUR ---
DRAFTER REFRIGERATION AT BEDSIDE IN DAY SURGERY TO DRAW TYPE AND SCREEN.
[2025-04-05] MEDS ORDERED: Midazolam HCl 1MG / ML 2ML Vial ONE (13:45)
[2025-04-05] MEDS ORDERED: HYDROmorphone HCl/Pf 1MG SYR ONE ×2 (14:11→15:01)
--- NOTE | 2025-04-05 14:12 | NUR ---
04/05/25 1412 Obdulia Bowie NO PREOP ANTIBIOTICS ORDERED PER PATIENT IS ON SCHEDULED ANTIBIOTICS.
[2025-04-05 15:08] LABS: Hematocrit 31.2 % (37.0-53.0); Hemoglobin 9.5 g/dL (13.5-17.5); Mean Corpuscular HGB Conc 30.4 g/dL (31.5-36.5); Mean Corpuscular Volume 82 fL (80-100); NRBC ABSOLUTE 0.00 K/mm3 (0.00-0.02); NRBC Auto 0.0 /100 WBC (0.0-0.2); Platelet Count 413 K/mm3 (150-400); RDW Coefficient Variation 16.1 % (11.7-14.2); RDW Standard Deviation 48.0 fL (35.1-46.3)
[2025-04-05] MEDS ORDERED: Sugammadex Sodium 200 MG/2ML SDV (100 MG/ML) ONE (15:56)
[2025-04-05] MEDS ORDERED: Piperacillin/Tazobactam Sod 4.5 GM in NS 100 ML IV SCH (16:00)
[2025-04-05] MEDS ORDERED: HYDROmorphone HCl/Pf 1MG SYR IV PRN (16:10)
--- NOTE | 2025-04-05 18:28 | NUR ---
DAY SHIFT SUMMARY PT ARRIVED TO ICU APPROX 1622 FROM THE OR. PT W RASS OF -5 ON ARRIVAL BUT IS SLOWLY BECOMING MORE RESPONSIVE MOVING EXTREMITIES. PT'S MIDLINE INCISION HAS JENNIFER DRSSING THAT HAS SMALL AMOUNT OF DRAINAGE ON LOWER EDGE BUT DOES NOT SHOW ACTIVE OOZING. PEDRO LUIS DRAIN IN LLQ HOLDS SUCTION AND HAS DRAINED 50ML VIN RED LIQUID SINCE ARRIVING TO ICU. PT HAS ARTERIAL LINE IN LEFT WRIST THAT HAS JUST OVER 1 CM EXSPOSED FROM INSERTION SITE. BP STABLE. MONITOR SHOWED AFIB 130'S-140'S ON ARRIVAL W CARDIZEM GTT INFUSING AT 10 MG/HR. CARDIZEM GTT TITRATED UP TO 15 MG/HR AND MONITOR SHOWING AFIB 100'S-115'S. PT'S SPO2 >92% ON 3L OXYMASK. DAVIS CATHETER PRESENT ON ARRIVAL TO ICU AND HAS HAD 200ML DRAINED FOR THIS SHIFT. PT CURRENTLY RECIEVING LR INFUSION AT 150 ML/HR WELL CARDIZEM AND ZOSYN GTT. WILL REPORT TO ONCOMING RN.
[2025-04-06] VITALS (67 sets, daily range): BP systolic 95–135; BP diastolic 55–95
[2025-04-06 05:17] LABS: BASOPHILS ABSOLUTE AUTO 0.06 K/mm3 (0.00-0.23); BASOPHILS PERCENT AUTO 0 % (0-2); EOSINOPHILS ABSOLUTE AUTO 0.05 K/mm3 (0.00-0.68); EOSINOPHILS PERCENT AUTO 0 % (0-6); Hematocrit 29.9 % (37.0-53.0); Hemoglobin 8.9 g/dL (13.5-17.5); IMMATURE GRAN ABSOLUTE AUTO 0.23 K/mm3 (0.00-0.10); IMMATURE GRAN PERCENT AUTO 1 % (0-1); LYMPHOCYTES ABSOLUTE AUTO 2.76 K/mm3 (0.84-5.20); LYMPHOCYTES PERCENT AUTO 11 % (21-46); MONOCYTES ABSOLUTE AUTO 1.09 K/mm3 (0.16-1.47); MONOCYTES PERCENT AUTO 4 % (4-13); Mean Corpuscular HGB Conc 29.8 g/dL (31.5-36.5); Mean Corpuscular Volume 83 fL (80-100); NEUTROPHILS ABSOLUTE AUTO 21.37 K/mm3 (1.96-9.15); NEUTROPHILS PERCENT AUTO 84 % (41-73); NRBC ABSOLUTE 0.00 K/mm3 (0.00-0.02); NRBC Auto 0.0 /100 WBC (0.0-0.2); Platelet Count 459 K/mm3 (150-400); RDW Coefficient Variation 16.2 % (11.7-14.2); RDW Standard Deviation 49.3 fL (35.1-46.3)
[2025-04-06 05:43] LABS: Alanine Aminotransfer (ALT/SGP 13.0 U/L (12-78); Albumin, Blood 1.1 g/dL (3.4-5.0); Albumin/Globulin Ratio 0.3 (0.8-1.8); Anion Gap 9.0 mmol/L (3-11); Aspartate Aminotrans (AST/SGOT 22.0 U/L (12-37); Bilirubin, Total 0.6 mg/dL (0.1-1.0); Blood Urea Nitrogen 27.0 mg/dL (8-24); CO2, Blood 23.0 mmol/L (21-32); Calcium, Blood 7.8 mg/dL (8.5-10.1); Chloride, Blood 109.0 mmol/L (98-108); Creatinine, Blood 1.59 mg/dL (0.60-1.20); Globulin, Blood 4.2 g/dL (2.2-4.0); Glucose, Blood 112.0 mg/dL (70-99); Potassium, Blood 4.3 mmol/L (3.5-5.5); Sodium, Blood 137.0 mmol/L (136-145); Total Protein, Blood 5.3 g/dL (6.4-8.2)
[2025-04-06] MEDS ORDERED: Pantoprazole Sodium 40 MG Injection IV SCH (06:00)
--- NOTE | 2025-04-06 06:21 | NUR ---
SHIFT SUMMARY: PT REMAINS DROWSY, AROUSES TO VERBAL STIMULI, CAN ANSWER SIMPLE QUESTIONS. PT CAN FOLLOW SIMPLE COMMANDS, THOUGH AT TIMES NEED REPETITIVE COACHING. PT COOPERATIVE WITH CARE. REMAINED AFEBRILE T/O SHIFT. PT HR REMAINS AFIB, 90S-110S. PT NO LONGER ON CARDIZEM GTT. SBP WNL. ART LINE REMAINS IN PLACE. MAPS>65. PT ON RA. SATS >92%. ABD TENDER TO PALPATION, PEDRO LUIS DRAIN TO LLQ DRAINING VIN RED DRAINAGE, NEW OSTOMY TO LLQ W/ MINIMAL PINK OUTPUT THIS SHIFT. PT HAS JENNIFER DRAIN TO MIDLINE OF ABD. DRESSING HAS SMALL AMOUNT OF SATURATION BUT REMAINS INTACT AND WORKING PROPERLY. PT DAVIS REMOVED THIS SHIFT DUE TO LEAKAGE. MALE PUREWICK PLACED AND CONNECTED TO CONTINUOUS SUCTION. PT HAS POWERGLIDES TO BILAT UPPER ARMS AND PERIPHERAL IV TO LAC. INFUSING IS LR AT 150ML/HR. THIS RN WILL REPORT TO ONCOMING RN.
[2025-04-06 15:40] LABS: Alanine Aminotransfer (ALT/SGP 13.0 U/L (12-78); Albumin, Blood 1.2 g/dL (3.4-5.0); Albumin/Globulin Ratio 0.3 (0.8-1.8); Anion Gap 7.0 mmol/L (3-11); Aspartate Aminotrans (AST/SGOT 20.0 U/L (12-37); Bilirubin, Total 0.6 mg/dL (0.1-1.0); Blood Urea Nitrogen 28.0 mg/dL (8-24); CO2, Blood 25.0 mmol/L (21-32); Calcium, Blood 7.9 mg/dL (8.5-10.1); Chloride, Blood 109.0 mmol/L (98-108); Creatinine, Blood 1.68 mg/dL (0.60-1.20); Globulin, Blood 3.8 g/dL (2.2-4.0); Glucose, Blood 107.0 mg/dL (70-99); Potassium, Blood 4.0 mmol/L (3.5-5.5); Sodium, Blood 137.0 mmol/L (136-145); Total Protein, Blood 5.0 g/dL (6.4-8.2)
--- NOTE | 2025-04-06 18:29 | NUR ---
PT A&OX2 HARD TO DECIPHER IF UNORIENTED OR NOT WANTING TO ANSWER. DID FOLLOW SOME SIMPLE COMMANDS. TAKES MULTIPLE QUEING TO TAKE MEDS. DID NOT WANT TO EAT OR DRINK FLUIDS. LR INCREASED TO 200ML/HR. CARDIZEM RESTARTED, NOW RUNNING AT 5. METOPROLOL INCREASED TO 50 BID. DIET UPGRADED TO CLD. ART LINE REMOVED DUE TO KINKED CATH. BLADDER SCANNED TWICE THROUGHOUT DAY WITH MINIMAL AMOUNTS SEEN. PT WAS ABLE TO VOID LATER IN SHIFT AND COORELATED WITH AMOUNT SEEN ON SCAN. CREAT INCREASED THROUGHOUT SHIFT. LEAKAGE NOTED AROUND PEDRO LUIS AND OSTOMY SITES.
--- NOTE | 2025-04-06 20:50 | NUR ---
PROVIDER NOTIFICATION: REACHED OUT TO DR HASTINGS AND LEFT A MESSAGE TO CALL BACK. THE PATIENT IS REFUSING TO INTERACT WITH NURSING STAFF, THIS BEHAVIOR WAS VERIFIED BY 2 OTHER NURSES. CHARGE WAS MADE AWARE. PATIENT WILL LOOK AT YOU WHEN SPEAKING TO HIM. HE DID NOD HIS HEAD NO WHEN ASKED IF HE WAS IN PAIN. AND WHEN ASKED IF HE COULD MADE ANY NOISE, EVEN YELL IF HE WANTED TO, JUST TO SEE IF HE WAS CAPABLE OF VOCALIZATION, THE PATIENT YELLED. OTHERWISE HE WILL NOT FOLLOW COMMANDS. PUPILS ARE EVEN AND REACTIVE. WHEN TESTING VALUE STREAM LEADER STRENGTH, THE PATIENT WOULD NOT FOLLOW COMMANDS. HOWEVER I KEPT MY FINGERS IN THE HANDS AND HE DID EVENTUALLY SQUEEZE WITH EQUALY MODERATE VALUE STREAM LEADER STRENGTH. PATIENT HAS AN INTACT GAG AND COUGH. UNABLE TO TEST FOR SWALLOW, RISK IS TOO HIGH AT THE MOMENT.
[2025-04-07] VITALS (44 sets, daily range): BP systolic 93–146; BP diastolic 55–111
[2025-04-07 04:34] LABS: BASOPHILS ABSOLUTE AUTO 0.08 K/mm3 (0.00-0.23); BASOPHILS PERCENT AUTO 0 % (0-2); EOSINOPHILS ABSOLUTE AUTO 0.31 K/mm3 (0.00-0.68); EOSINOPHILS PERCENT AUTO 1 % (0-6); Hematocrit 27.2 % (37.0-53.0); Hemoglobin 8.2 g/dL (13.5-17.5); IMMATURE GRAN ABSOLUTE AUTO 0.20 K/mm3 (0.00-0.10); IMMATURE GRAN PERCENT AUTO 1 % (0-1); LYMPHOCYTES ABSOLUTE AUTO 2.14 K/mm3 (0.84-5.20); LYMPHOCYTES PERCENT AUTO 9 % (21-46); MONOCYTES ABSOLUTE AUTO 1.08 K/mm3 (0.16-1.47); MONOCYTES PERCENT AUTO 5 % (4-13); Mean Corpuscular HGB Conc 30.1 g/dL (31.5-36.5); Mean Corpuscular Volume 84 fL (80-100); NEUTROPHILS ABSOLUTE AUTO 19.71 K/mm3 (1.96-9.15); NEUTROPHILS PERCENT AUTO 84 % (41-73); NRBC ABSOLUTE 0.00 K/mm3 (0.00-0.02); NRBC Auto 0.0 /100 WBC (0.0-0.2); Platelet Count 372 K/mm3 (150-400); RDW Coefficient Variation 16.1 % (11.7-14.2); RDW Standard Deviation 50.3 fL (35.1-46.3)
[2025-04-07 04:53] LABS: Alanine Aminotransfer (ALT/SGP 12.0 U/L (12-78); Albumin, Blood 1.1 g/dL (3.4-5.0); Albumin/Globulin Ratio 0.3 (0.8-1.8); Anion Gap 8.0 mmol/L (3-11); Aspartate Aminotrans (AST/SGOT 24.0 U/L (12-37); Bilirubin, Total 0.5 mg/dL (0.1-1.0); Blood Urea Nitrogen 25.0 mg/dL (8-24); CO2, Blood 25.0 mmol/L (21-32); Calcium, Blood 7.4 mg/dL (8.5-10.1); Chloride, Blood 111.0 mmol/L (98-108); Creatinine, Blood 1.64 mg/dL (0.60-1.20); Globulin, Blood 4.2 g/dL (2.2-4.0); Glucose, Blood 86.0 mg/dL (70-99); Potassium, Blood 3.7 mmol/L (3.5-5.5); Sodium, Blood 140.0 mmol/L (136-145); Total Protein, Blood 5.3 g/dL (6.4-8.2)
--- NOTE | 2025-04-07 06:30 | NUR ---
SHIFT SUMMARY: PATIENT CARE/REPORT TAKEN AT 1900. THE PATIENT SLEPT THROUGH MOST OF THE EVENING. PATIENT BARELY INTERACTED WITH NURSING STAFF. HE REFUSED TO SPEAK, WOULD TRACK YOU WITH HIS EYES AND NOD HIS HEAD APPROPRIATELY. IT WAS NOT UNTIL 0600 THAT THE PATIENT TOLD HIS NAME AND . PUPILS ARE EQUAL AND REACTIVE. NO FACIAL DROOP, EQUAL MODERATE RETOUCHER PHOTOENGRAVING STRENGTH. WOULD NOT FOLLOW COMMANDS BUT LOCALIZED MOVEMENT IN ALL LIMBS. PAIN CONTROLLED WITH PRN MEDICATION. FINDINGS HAVE BEEN COMMUNICATED WITH THE NIGHT HOSPITALIST. VSS. ON 2-3 LPM VIA NC. MIDLINE INCISION DRESSING IS INTACT, CLEAN AND DRY. PEDRO LUIS DRAIN HAS SCANT AMOUNT OF PINK-WHITE THICK OUTPUT. COLOSTOMY HAD NO OUTPUT. UOP IS LOW. PATIENT HR IS CONTROLLED VIA CARDIZEM. PATIENT IS GETTING FLUIDS WITH LR. NO EVENTS OR COMPLICATIONS TO REPORT.
[2025-04-07] MEDS ORDERED: HYDROcodone 5-APAP 325 TAB PO PRN (11:25)
[2025-04-07] MEDS ORDERED: Heparin Sodium 5000 Units/ML 1ML MDV IV SCH (16:00)
[2025-04-07 16:45] LABS: Alanine Aminotransfer (ALT/SGP 11.0 U/L (12-78); Albumin, Blood 1.1 g/dL (3.4-5.0); Albumin/Globulin Ratio 0.3 (0.8-1.8); Anion Gap 7.0 mmol/L (3-11); Aspartate Aminotrans (AST/SGOT 21.0 U/L (12-37); Bilirubin, Total 0.4 mg/dL (0.1-1.0); Blood Urea Nitrogen 26.0 mg/dL (8-24); CO2, Blood 25.0 mmol/L (21-32); Calcium, Blood 7.8 mg/dL (8.5-10.1); Chloride, Blood 112.0 mmol/L (98-108); Creatinine, Blood 1.7 mg/dL (0.60-1.20); Globulin, Blood 4.1 g/dL (2.2-4.0); Glucose, Blood 98.0 mg/dL (70-99); Potassium, Blood 3.6 mmol/L (3.5-5.5); Sodium, Blood 140.0 mmol/L (136-145); Total Protein, Blood 5.2 g/dL (6.4-8.2)
--- NOTE | 2025-04-07 18:03 | NUR ---
PT IS ALERT, BUT UNABLE TO CARRY ON ANY CONVERSATION, AND GENERALLY ISN'T EVEN SHAKING HIS HEAD YES OR NO. HE WAS NOTED TO HAVE COLORECTAL CANCER WITH METS TO LIVER AND LUNG, ALONG WITH AN ABCESS IN ABDOMEN. SURGICAL I & D DONE. HE HAS NAMED CELE GLEN HIS PERSON TO CONTACT AND ACCORDING TO CELE, HE DOESN'T HAVE ANYONE ELSE. CONFIRMED THIS WITH SECURITY LEAD WHO ATTEMPTED TO LOCATE FAMILY ON LAST ADMISSION. CELE HAS ELECTED TO CHANGE PT'S CODE STATUS TO DNR GIVEN HIS METASTATIC DISEASE. DEPENDING ON PT'S MENTATION, CELE MAY PURSUE CONSERVATORSHIP. HOWEVER, PHYSICIAN REQUESTS WE GIVE HIM MORE TIME TO CLEAR FROM ANESTHESIA BEFORE MAKING ANY OTHER CHANGES TO PT'S PLAN OF CARE.
--- NOTE | 2025-04-07 18:30 | NUR ---
PT STILL NOT COMMUNICATING WITH STAFF. NOTED IN LAST ADMISSION NOTES TO HAVE COG IMPAIRMENT. REMAINS ON 3L/NC. VOIDING PER PURWICK. POOR APPETITE. LR DROPPED TO 100ML/HR. DRESSING CHANGED ON OSTOMY AND PEDRO LUIS. CODE STATUS CHANGED TO DNR. FRIEND, CELE, IS WILLING TO BE CONSERVITOR FOR PT. BECOMING MORE AGITATED WITH NC AND DRESSING. PULLING O2 SAT OFF AND REMOVING NC. UNSURE IF HE IS CONFUSED OR DOES NOT UNDERSTAND IMPORTANCE.
--- NOTE | 2025-04-07 19:30 | NUR ---
PT IS ALERT, ORIENTED TO SELF. VS WNL W/NO S/S OF ACUTE DISTRESS NOTED AT THIS TIME. PT TRANSFERRING TO PCU 11.
--- NOTE | 2025-04-07 19:46 | NUR ---
REPORT GIVEN TO ANNABEL JACOBS RN PCU
--- NOTE | 2025-04-07 20:20 | NUR ---
ASSUMPTION OF CARE REPORT IRISH VELAZQUEZ RN. PT ARRIVED TO PCU AROUNF 1999. PT SLID 0VER FROM ICU BED TO PCU BED. PT ALERT, OREITNED TO SELF. HX OF COGNITIVE IMPAIRMENT. PT HR IN THE 90'S-100'S, AFIB. HE DENIES ANY CP/PRESSURE, NUMB/TINGLING, SBP STABLE. 02 AT 90% ON RA. PT ON O2 AT BASELINE BUT PULLS NC OUT. HE DENIES ANY SOB. MALE PUREWICK IN PLACE. PT HAS A COLOSTOMY IN PLACE, NO OUTPUT. HE HAS A PEDRO LUIS DRAIN WITH LESS THAN AN ML OF PINK TINGED DRAINAGE. HE HAS A MIDLINE INCSION WITH ABD PAD IN PLACE, SMALL AMOUNT OF DRAINAGE NOTED. PT REPORTS SOME ABD PAIN AT PEDRO LUIS DRAIN SITE THAT IS AGGRIVATED WITH MOVEMENT. PT RESTING IN BED AT THIS TIME. BED ALARM ON. CALL LIGHT IN REACH.
[2025-04-07] MEDS ORDERED: Heparin Sodium,Porcine 5,000 UNIT/0.5 ML SDV SC SCH (21:00)
[2025-04-08] VITALS (7 sets, daily range): BP systolic 108–162; BP diastolic 66–99
--- NOTE | 2025-04-08 01:19 | NUR ---
PT HAD 2100 DOSE OF SC HEPARN. PT S/P ABD SURGERY. WITH A HGB OF 8.2. CALL PLACE DTO RESIDENT TO CLARIFY IF HEPARIN HOULD BE GIVEN. PER RESIDENT OKAY TO GIVE HEPARIN.
[2025-04-08 04:32] LABS: BASOPHILS ABSOLUTE AUTO 0.05 K/mm3 (0.00-0.23); BASOPHILS PERCENT AUTO 0 % (0-2); EOSINOPHILS ABSOLUTE AUTO 0.31 K/mm3 (0.00-0.68); EOSINOPHILS PERCENT AUTO 1 % (0-6); Hematocrit 28.7 % (37.0-53.0); Hemoglobin 8.4 g/dL (13.5-17.5); IMMATURE GRAN ABSOLUTE AUTO 0.14 K/mm3 (0.00-0.10); IMMATURE GRAN PERCENT AUTO 1 % (0-1); LYMPHOCYTES ABSOLUTE AUTO 2.38 K/mm3 (0.84-5.20); LYMPHOCYTES PERCENT AUTO 11 % (21-46); MONOCYTES ABSOLUTE AUTO 0.85 K/mm3 (0.16-1.47); MONOCYTES PERCENT AUTO 4 % (4-13); Mean Corpuscular HGB Conc 29.3 g/dL (31.5-36.5); Mean Corpuscular Volume 84 fL (80-100); NEUTROPHILS ABSOLUTE AUTO 19.01 K/mm3 (1.96-9.15); NEUTROPHILS PERCENT AUTO 84 % (41-73); NRBC ABSOLUTE 0.00 K/mm3 (0.00-0.02); NRBC Auto 0.0 /100 WBC (0.0-0.2); Platelet Count 385 K/mm3 (150-400); RDW Coefficient Variation 16.1 % (11.7-14.2); RDW Standard Deviation 49.3 fL (35.1-46.3)
[2025-04-08 05:03] LABS: Alanine Aminotransfer (ALT/SGP 11.0 U/L (12-78); Albumin, Blood 1.1 g/dL (3.4-5.0); Albumin/Globulin Ratio 0.3 (0.8-1.8); Anion Gap 8.0 mmol/L (3-11); Aspartate Aminotrans (AST/SGOT 22.0 U/L (12-37); Bilirubin, Total 0.5 mg/dL (0.1-1.0); Blood Urea Nitrogen 22.0 mg/dL (8-24); CO2, Blood 24.0 mmol/L (21-32); Calcium, Blood 7.5 mg/dL (8.5-10.1); Chloride, Blood 111.0 mmol/L (98-108); Creatinine, Blood 1.2 mg/dL (0.60-1.20); Globulin, Blood 4.2 g/dL (2.2-4.0); Glucose, Blood 72.0 mg/dL (70-99); Potassium, Blood 3.4 mmol/L (3.5-5.5); Sodium, Blood 140.0 mmol/L (136-145); Total Protein, Blood 5.3 g/dL (6.4-8.2)
--- NOTE | 2025-04-08 05:57 | NUR ---
shift summary pt alert, oriented to self, confused. pt answers some questions and not others, hx of cognitive impairment. hr in the 90's, afib, he denies cp/pressure, numb/tingling, sbp stable. pt on RA-3L, he pulls his nc off, o2 >92%. pt has purewick in place, yellow urine. pt had a liquid, incontinent BM t/o shift, new "blowhole" colostomy in place. pt has midline abd inscion, pedro drain in place. pt also has a shirley drain in place of the LLQ, pinkish/red drainage in tube. pt has pain of the abd that is worse with movement/coughing, medicating per emar. pt has fluids infusing per emar. PT MORNING LABS CAME BACK THIS AM. POTASSIUM OF 3.4 AND CALCIUM OF 7.5, RESIDENT NOTIFIED. ORDERS PLACED. PT RESTING IN BED AT THIS TIME. CALL LIGHT IN REACH. WILL MONITOR PT AND REPORT TO ONCOMING RN.
[2025-04-08] MEDS ORDERED: Magnesium Sulf 2 GM/Water 50ML 50 ML IV ONE (09:45)
[2025-04-08] MEDS ORDERED: Metoprolol Tartrate 1 MG/ML 5 ML VIAL IV ONE (11:00)
--- NOTE | 2025-04-08 11:48 | NUR ---
LATE ENTRY 0950 CONTACTED AND UPDATED THAT PT HR HAS REMAINED FLUTTER AT 155 BPM AFTER TRANSFERING FROM BED TO RECLINER. PT RECIEVED MORNING METOPROLOL ORDERED AND WAS NOTIFIED THAT HR STILL 155. BP'S CHECKED AND STABLE. METOPROLOL PUSH ORDERED AND GIVEN. PT HR IN 120'SAFTER LORPESSOR PUSH AND TRANSFERED BACK TO BED VIA LIFT.
--- NOTE | 2025-04-08 18:19 | NUR ---
SHIFT SUMMARY PT A/OX1, ORIENTED TO SELF. PT SEEMS TO ANSWER SOME YES/NO QUESTIONS APPROPIATE. PT WILL SAY 1-2 WORDS AND THEN BECOME SILENT WITH STAFF. PT MOST TALKATIVE WITH SURGEIN THIS MORNING. PT HR BECAME TACHY DURING AMBULATING PT TO RECLINER THIS MORNING. HR STABLE AFTER LOPRESSOR PUSH AND TRANSFER BACK TO BED VIA LIFT. OTHER VSS. PT DID NOT ENDORSE CHAEST PAIN/PRESSURE OR SOB. PT REPORTED ABD PAIN THIS MORNING AND TOOK ONE PAIN PILL THIS MORNING. PT DECLINED PAIN PILL THIS EVENING, DESPITE BEING HEARD SAYING "OW" PERIODICALLY. PT HAD 2 BM, NO OUTPUT OF COLOSTOMY. PEDRO LUIS DRAIN CONTINUES TO DRAIN THICK CLUMPS ALONG WITH SEROSANGUINEOUS DRAINAGE. PUREWICK IN PLACE, LUPIS URINE. PT TRIALED ON RA, DESATED TO MID 80'S. 3 L NC REAPPLIED.
--- NOTE | 2025-04-08 19:31 | NUR ---
ASSUMPTION OF CARE PT ALERT, ORIENTED TO SELF. PT HAS HX OF COGNITIVE IMPAIRMENT. HE WILL ANSWERS QUESTIONS AND TALK OCASSIONALLY AND OTHER TIMES NOT ANSWER AND STARE OFF. HE SHAKESD HIS HEAD YES NO TO QUESTIONS APPROPRIATELY. HR IN THE 80'S, AFIB, HE DEIES ANY CP/PRESSURE, NUMB/TINGLING, SBP STABLE IN THE 120'S. O2 AT 98% ON 2L VIA NC. PT HAS PUREWICK IN PLACE, DRAINING YELLOW URINE. PT HAS A "BLOWHOLE" COLOSTOMY IN PLACE, HE HAS NOT HAD ANY OUTPUT FROM COLOSTOMY. PT ALSO WITH MIDLINE INCSION, JENNIFER DRAIN IN PLACE, WITH SLIGHT DRAINAGE NOTED. PT ALSO WITH PEDRO LUIS DRAIN TO THE LLQ, RED/PINK, SEROSANGUINEOUS DRAINAGE. PT HAS OCASSIONAL PAIN TO SITE, MEDICATING PER EMAR. PT RESTING IN BED, CALL LIGHT IN REACH. WILL MONITOR PT.
[2025-04-09 03:23] VITALS: BP 154/90
[2025-04-09 04:59] LABS: BASOPHILS ABSOLUTE AUTO 0.04 K/mm3 (0.00-0.23); BASOPHILS PERCENT AUTO 0 % (0-2); EOSINOPHILS ABSOLUTE AUTO 0.42 K/mm3 (0.00-0.68); EOSINOPHILS PERCENT AUTO 2 % (0-6); Hematocrit 29.6 % (37.0-53.0); Hemoglobin 8.9 g/dL (13.5-17.5); IMMATURE GRAN ABSOLUTE AUTO 0.21 K/mm3 (0.00-0.10); IMMATURE GRAN PERCENT AUTO 1 % (0-1); LYMPHOCYTES ABSOLUTE AUTO 2.54 K/mm3 (0.84-5.20); LYMPHOCYTES PERCENT AUTO 11 % (21-46); MONOCYTES ABSOLUTE AUTO 0.84 K/mm3 (0.16-1.47); MONOCYTES PERCENT AUTO 4 % (4-13); Mean Corpuscular HGB Conc 30.1 g/dL (31.5-36.5); Mean Corpuscular Volume 84 fL (80-100); NEUTROPHILS ABSOLUTE AUTO 18.22 K/mm3 (1.96-9.15); NEUTROPHILS PERCENT AUTO 82 % (41-73); NRBC ABSOLUTE 0.00 K/mm3 (0.00-0.02); NRBC Auto 0.0 /100 WBC (0.0-0.2); Platelet Count 375 K/mm3 (150-400); RDW Coefficient Variation 16.1 % (11.7-14.2); RDW Standard Deviation 49.1 fL (35.1-46.3)
[2025-04-09 05:47] LABS: Alanine Aminotransfer (ALT/SGP 12.0 U/L (12-78); Albumin, Blood 1.1 g/dL (3.4-5.0); Albumin/Globulin Ratio 0.2 (0.8-1.8); Anion Gap 10.0 mmol/L (3-11); Aspartate Aminotrans (AST/SGOT 26.0 U/L (12-37); Bilirubin, Total 0.5 mg/dL (0.1-1.0); Blood Urea Nitrogen 23.0 mg/dL (8-24); CO2, Blood 23.0 mmol/L (21-32); Calcium, Blood 7.7 mg/dL (8.5-10.1); Chloride, Blood 111.0 mmol/L (98-108); Creatinine, Blood 1.68 mg/dL (0.60-1.20); Globulin, Blood 4.4 g/dL (2.2-4.0); Glucose, Blood 81.0 mg/dL (70-99); Magnesium, Blood 2.1 mg/dL (1.6-2.4); Phosphorus, Blood 3.8 mg/dL (2.5-4.9); Potassium, Blood 3.7 mmol/L (3.5-5.5); Sodium, Blood 140.0 mmol/L (136-145); Total Protein, Blood 5.5 g/dL (6.4-8.2)
--- NOTE | 2025-04-09 06:17 | NUR ---
SHIFT SUMMARY PT ALERT. HE IS STILL ORIENTED TO ONLY SELF. HE IS SHAKING HIS HEAD YES/NO WHEN ASKED QUESTIONS. HE ANSWERS WITH SHORT SENTENCES OCASIONALLY AND WILL STARE OFF OTHER TIMES. HR IN THE 90'S-100'S, AFIB, HE SHAKES HEAD NO WHEN ASLED ABOUT HAVING ANY CP/PRESSURE, NUMB/TINGLING, SBP STABLE. O2 >92% ON 1L VIA NC. PUREWICK IN PLACE, DRAINING YELLOW URINE. PT HAS HAD A FEW LIQUID STOOLS PER RECTUM T/O SHIFT. HE HAS A NEW COLOSTOMY OF THE LUQ, NO OUTPUT FROM COLOSTOMY. HE HAS A MIDLINE INCSION WITH A JENNIFER DRAIN. PT ALSO WITH A PEDRO LUIS DRAIN TO THE LLQ. RED/PINK DRAINAGE NOTED. PT HAS PAIN THAT COMES ON WITH MOVEMENT/COUGHING, MEDICATING PER EMAR. DRESSING OF THE PEDRO LUIS DRAIN CHANGED THIS SHIFT DUE TO THE SITE LEAKING SOME FLUID. PTS COLOSTOMY BAG ALSO CHANGED T/O SHIFT. PICTURE TAKEN OF STOMA AND PLACED IN CHART. PT RESTING IN BED AT THIS TIME. CALL LIGHT IN REACH. WILL MONITOR PT AND REPORT TO ONCOMING RN.
[2025-04-09 07:27] VITALS: BP 144/87
--- NOTE | 2025-04-09 10:04 | NUR ---
UPDATE THIS RN CONTACTED PHIL TO REPORT PEDRO LUIS DRAIN LEAKING AND THAT THE SUTURES APPEAR TO HAVE COME UNDONE. SURGEON VERIFIED THAT THE PEDRO LUIS DRAIN STILL HAD SUCTION AND STATED THAT HE WILL COME TO LOOK AT NATE.
[2025-04-09 11:36] VITALS: BP 145/103
--- NOTE | 2025-04-09 15:10 | NUR ---
ETHICS/CASE CONFERENCE ETHICS CONSULT PLACED BY PCU ARRANGING FUNERAL DIRECTOR TODAY. 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 HE HAS BEEN UNABLE TO MAKE HIS NEEDS AND WANTS KNOWN FOR THE MAJORITY OF THIS HOSPITALIZATION. PREVIOUSLY NOTED, THE PATIENT'S ABILITY TO SPEAK FOR HIMSELF HAS WAXED AND WANED, BUT NOW HE IS ONLY OCCASIONALLY ABLE TO SHAKE HIS HEAD FOR "YES" OR "NO." HE HAS INDICATED "YES" ON MULTIPLE OCCASIONS WHEN THIS PC RN ASKS IF CELE FERNANDES (HIS FRIEND AND LANDLORD) CAN MAKE DECISIONS ON HIS BEHALF. CONSULTED WITH SUGEY BENTLEY VIA ETHICS. HE STATES IF WE HAVE ATTEMPTED A GOOD LEXI EFFORT TO FIND FAMILY, THE PATIENT'S CONDITION IS DEEMED TERMINAL, AND WE HAVE A 2 PROVIDER ATTESTATION REGARDING THE TERMINALITY, WE ARE THEN ABLE TO DEFAULT TO CELE THE DECISION MAKER. CELE HAS AGREED TO BE THE MEDICAL DECISION MAKER, AND HAS INDICATED SHE WOULD LIKE TO PLACE THE PATIENT ON COMFORT CARE. WILL FURTHER DISCUSS WITH DR. ELLIS, NO CURRENT ATTESTATION LOCATED IN THE CHART. WILL REQUEST 2 PROVIDER ATTESTATION PRIOR TO MOVING FORWARD WITH COMFORT CARE FOR THIS PATIENT.
[2025-04-09 16:11] VITALS: BP 148/104
[2025-04-09] MEDS ORDERED: Morphine Sulfate 20 MG/1ML 1 ML Oral Syringe SL PRN (17:30)
--- NOTE | 2025-04-09 17:34 | NUR ---
SHIFT SUMMARY PT ORIENTED TO SELF ONLY. PT REFUSED PAIN MED AND METOPROLOL THIS MORNING, PT HR TRENDED UP TO 120'S. PT HAD BRIEF PERIODS OF HR REACHING 150'S WHEN BEING MOVED IN BED FOR CLEANING, HR BACK TO 120'S AFTER FEW MINUTES. PT FINALLY AGREEABLE TO TAKE METOPROLOL THIS AFTERNOON. OTHER VSS. PT ENDORSED PAIN BUT NOT INDICATING WHERE PAIN IS LOCATED. TREATED PER EMAR. PALLIATIVE UPDATED ON PT AND MD DISCUSSED WITH PALLIATIVE TO SPEAK WITH ETHICS. ETHIC CONSULTED, SEE PALLIATIVE NOTE. PT MADE COMFORT CARE THIS EVENING PER MD ORDER AND ETHICS CONSULT. PT SEEN BY SURGEON THIS SHIFT TO ASSESS STOMA OF COLOSTOMY AND PEDRO LUIS DRAIN.
[2025-04-09] MEDS ORDERED: Atropine Sulfate 1% Opth Soln 2ML BTL SL PRN (17:35)
[2025-04-09 20:35] VITALS: BP 159/106
--- NOTE | 2025-04-09 22:40 | NUR ---
ASSUMPTION OF CARE PT TRANSITIONED TO COMFORT CARE TODAY. PT ALERT, ORIENTED TO SELF. HE SHAKES HEAD YES OR NO TO QUESTIONS. HE OCCASIONALLY WILL RESPOND WITH A FEW WORDS. HR IN THE 110'S, SBP IN THE 150'S. HE DENIES CP/PRESSURE. PT O2 AT 96% ON 2L VIA NC. PUREWICK IN PLACE, YELLOW URINE. PT HAS MIDLINE ABD INCSION, JENNIFER IN PLACE. PT WITH PEDRO LUIS DRAIN TO LLQ, RED/PINK, SERSANGEIOUS DRAINAGE. HE HAS A "BLOWHOLE" OSTOMY TO LUQ, NO OUTPUT NOTED FROM SITE, SURGEON AWARE. PT REFUSED AM METOPROLOL PER REPORT AND A ONE TIME DOSE WAS GIVEN AROUND 1600. DISCUSSED WITH MD IF 2100 DOSE WAS OKAY TO GIVE, PER MD OKAY TO GIVE IF PT WANTS TO TAKE IT HE IS COMFORT CARE. PT HR IN THE 110'S AT THIS TIME. PT TOOK ORAL METOPROLOL AND DRANK SOME WATER. APPROX 10 MINUTES LATER PT VOMITTED AND MEDICATION WAS IN THE VOMIT, MDICATED PER EMAR. TELE REMOVED FROM PT HE IS COMFORT CARE. PT WAS CLEANED AND GOWN CHANGED. HE IS RESTING IN BED AT THIS TIME. CALL LIGHT IN REACH.
[2025-04-10 00:57] VITALS: BP 164/114
[2025-04-10 03:40] VITALS: BP 160/103
--- NOTE | 2025-04-10 05:49 | NUR ---
SHIFT SUMMARY PT ALERT, ORIETNED TO SELF. PT ON COMFORT CARE. HR IN THE 100'S. PT DENIES CP/PRESSURE, NUMB/TINGLING. O2 >92% ON 2L VIA NC. RR RANGING FROM 22-28, RESPIRATIONS SHALLOW. PT HAS PUREWICK IN PLACE, YELLOW URINE. PT HAS PEDRO LUIS DRAIN IN LLQ. MIDLINE INCSION W/ JENNIFER DRAIN. PT ALSO HAS NEW COLOSTOMY IN LUQ, NO OUTPUT NOTED FROM COLOSTOMY, PT DID HAVE BM PER RECTUM. PT HAD TWO EPISODE OF VOMITTING T/O SHIFT AFTER SIPPING WATER AND TAKING ORAL MEDICATIONS. MEDICATED PER EMAR FOR AIR HUNGER/PAIN, SEE EMAR. PT RESTING IN BED AT THIS TIME. WILL MONITOR PT AND REPORT TO ONCOMING RN.
--- NOTE | 2025-04-10 11:41 | NUR ---
DR SASCHA CAICEDO ROUNDED ON PT. INFORMED OF PEDRO LUIS AND OSTOMY OUTPT. ASKED ABOUT HICCUPS. HE HAD NO SUGGESTIONS. CARE ONGOING.
--- NOTE | 2025-04-10 13:45 | NUR ---
ABD INCISION MIDLINE ABD INCISION WITH PECO DRAIN SYSTEM. DRESSING NO LONGER FUNCTIONAL. REMOVED DRESSING. ABD INCISION WITH YULY. WELL APPROXIMATED. NO S/S OF INFECTION. NO OBSERVABLE ACTIVE DRAINAGE. ABD. SOFT FLAT. INCISION CLEANED WITH WOUND GAS TESTER. NEW MEPILEX APPLIED TO PROTECT YULY FROM CLOTHING. LEFT OSTOMY WAFER INTACT. STOMA FLAT AND REDDICH. NO FLATUS OR PROTUCT FROM STOMA. PT WITH HICCUPS. ROXANOL SEEMS TO HELP. CARE ONGOING.
[2025-04-10] MEDS ORDERED: Haloperidol Lactate 2 MG/ML Conc 1ML Dose PO PRN (16:50)
--- NOTE | 2025-04-10 16:52 | NUR ---
PALLIATIVE CARE SUPPORTIVE VISIT: SPOKE TO PRIMARY RN ABOUT CONCERNS. PT HAVING HICCUPS THAT HAVE NOT GONE AWAY. PT IS NON RESPONSIVE AT THIS TIME. UNABLE TO SWALLOW MEDICATIONS. RN REPORTS POSSIBLE GI BLOCKAGE CAUSE. PAIN APPEARS MANAGED. FACE SCALE 0/10. PT HAS HICCUPS WHILE OBSERVING PT. CALLED DR. ELLIS AND REQUESTED HALDOL ORAL CONCENTRATE FOR HICCUPS. PERMISSION GIVEN TO START HALDOL FOR HICCUPS. ORDER PLACED.
--- NOTE | 2025-04-10 18:32 | NUR ---
HALDOL PT HICCUPS RESTRATED. ADMINISTRED HALDOL PER ORDER. PT AGREEABLE TO MEDICATION. HICCUPS HAVE NOT RESOLVED YET. CARE ONGOING.
--- NOTE | 2025-04-11 04:15 | NUR ---
PT TRANSFERED TO 339 DURING SHIFT. UNABLE TO FULLY ASSESS WHETHER PATIENT IS FULLY ALERT AND ORIENTED. PATIENT DOES NOT VERABLLY RESPOND BUT WILL RESPOND WITH NODS. HALDOL GIVEN FOR HICCUPS WITH LITTLE RELIEF. PATIENT ON [address] OSTOMY IN PL[address] W NO OUTPUT-PEDRO LUIS DRAIN IN PLACE WITH YELLOW FLUID OUTPUT. MALE PUREWICK IN PLACE. ORAL CARE PROVIDED DURING SHIFT. BED IN LOW POSITION AND WHEELS ARE LOCKED. CALL LIGHT WITHIN REACH.
[2025-04-11] MEDS ORDERED: Polyethylene Glycol 3350 17 gm PO PRN (08:50)
--- NOTE | 2025-04-11 15:07 | NUR ---
[facility] visit conducted. Patient is lying in bed and alert. He does not verbally answer my questions but nods his head to answer "yes" and "no." He agees that he is not doing well, that he is lonely and that this is a hard place/space to be in. He shakes his head "no" when asked what is most important to him, and if he has peace. He nods affirmingly when I asked if I could say a prayer for him. I gladly supply prayer and he becomes a bit tearful during and after the prayer. I will continue to remain available to the patient.
--- NOTE | 2025-04-11 17:37 | NUR ---
SHIFT SUMMARY PT CONT WITH COMFORT CARE. PT NOTED TO OPEN EYES TO VERBAL STEMULI. ALTHOUGH PT DOESNT RESPOND VERBALLY PT WILL NOD HIS HEAD TO YES/NO QUESTIONS. DR MOLINA PULLED PT PEDRO LUIS DRAIN THIS SHIFT. PT CONT WITH OSTOMY BAG WITH NO OUTPUT NOTED. PT ALSO NOTED TO CONT WITH MALE PUREWICK WITH LUPIS COLOR URINE NOTED. PT HAS RECIEVED PRN ROXANOL X1 THIS SHIFT FOR PAIN. IT WAS REPORTED TO THIS NURSE BY JUANA IN PALLATIVE CARE THAT PT HAD THE HICCUPS THIS SHIFT. ALTHOUGH WHEN THIS NURSE WENT INTO PT ROOM NO HICCUPS WHERE OBSERVED. PT REMAIN ON 2L FOR COMFORT. PT NOTED TO REFUSE TO TAKE PO SCHEDULED MEDICATION THIS SHIFT.
--- NOTE | 2025-04-11 18:16 | NUR ---
PALLIATIVE CARE NOTE: ATTEMPTED TO CALL MD TWICE TO REQUEST ADJUSTMENT OF HALDOL MEDICATION FOR HICCUPS. PT CONTINUES TO HAVE HICCUPS. RESEARCHED RECOMMENDED DOSE AND IT IS SUGGESTED TO START HALDOL AT 2-5 MG LOADING DOSE AND THEN 1-4 MG TID. PT IS CURRENTLY ON HALDOL 1 MG Q4 PRN. AWAITING RETURN CALL FROM MD.
--- NOTE | 2025-04-12 04:37 | NUR ---
SUMMARY: PT REMAINS ON COMFORT MEASURES. HE'S MOSTLY NONVERBAL BUT OCC.ANSWERS Q'S IN A FEW WORDS AND NODS YES/NO OR GIVES THUMBS UP/DOWN TO CONVEY NEEDS. DX IS C/D/I TO PREVIOUS PEDRO LUIS DRAIN SITE AND OSTOMY CONT'S W/NO OUTPUT AND ONLY A SMALL AMT OF GAS. MALE PUREWIC REMAINS IN PLACE W/LUPIS CLOUDY URINE OBSERVED. TURN SCHEDULE MAINTAINED AND PILLOWS PLACED FOR SBD PREVENTION AND TO ELEVATE EXT'S. ROXINOL PROVIDED X1 FOR TOLERABLE RELIEF OF ABDO PAIN AND HALDOL ORAL SOLUTION RECEIVED FOR HICCUPS. NO ACUTE CHANGES. WILL REPORT TO DAY RN.
--- NOTE | 2025-04-12 16:44 | NUR ---
Spiritual care visit conducted. Patient is lying in bed and alert. He is facing the window and listening to the music from the tv. I ask he he would like live music instead, as I explained about my acoustic guitar that I brought. He verbally stated, "Yes." I played 45 minutes of therapeutic finger style guitar playing. The patient continued to face the window and away from me. He moved slightly in his bed and showed more movement between songs. He became very still on the last song and I checked and he was sleeping. I quietly gathered my guitar and left him to rest. I will continue to remain available.
--- NOTE | 2025-04-12 18:10 | NUR ---
SHIFT SUMMARY PT CONT WITH PLAN OF CARE WITH NO ACUTE CHANGES NOTED. NO OUTPUT NOTED FROM PT OSTOMY BAG THIS, BUT NOTED TO HAVE TO BE BURPED 3X THIS SHIFT D/T PT PASSING GAS. PT NOTED TO RECIEVE PRN ROXONAL X1 THIS SHIFT FOR PAIN/ INCREASE IN RESP. WITH EFFECTIVENESS. PT CONT WITH REPOSITIONING SCHEDULE.
--- NOTE | 2025-04-13 03:51 | NUR ---
SUMMARY: PT ON COMFORT CARES. PT MOSTLY NONVERBAL, WILL NOD HEAD FOR YES OR NO QUESTIONS AND SPEAKS OCCASIONALLY. PT HAS MALE PUREWICK AND OSTOMY. ONE INCONTINENT EPISODE OVERNIGHT, BED CHANGE. HICCUPS OVERNIGHT- GIVEN HALDOL PER EMAR TWICE. PT DENIES DISCOMFORT AT THIS TIME.
--- NOTE | 2025-04-13 16:51 | NUR ---
Spiritual care visit conducted. The patient said a few more words in my presence today. He stated that he is "making it one day at a time" and "I'm not having any pain right now." The rest of the time was head nods. One affirmation was for prayer, which I gladly provided. Another was affirming that he would like for me to come and visit again, which I plan on doing.
--- NOTE | 2025-04-13 18:19 | NUR ---
SHIFT SUMMARY: PT ORIENTED TO SELF WITH AM ASSESSMENT. PALLIATIVE IN TO SEE PT THIS SHIFT AND SPOKE WITH PT NEIGHBOR/FRIEND REGARDING FUTURE LIVING/FINANCES/HOSPICE. OSTOMY WORKING WELL AND EMPTIED NEEDED. MALE PUREWICK IN PLACE DRAINING DARK YELLOW URINE. PT AWAKE ENOUGH TO EAT MEALS. POWERGLIDE AND IV IN LEFT ARM REMOVED D/T NOT NEEDED. PG DRESSING IN JAZMIN CHANGED PER PROTOCOL; FLUSHES AND DRAWS WELL. NO HICCUPS NOTED. THIS SHIFT. CALL LIGHT IN REACH. BED IN LOWEST POSITION.
[2025-04-13 19:44] VITALS: BP 119/81
--- NOTE | 2025-04-14 03:17 | NUR ---
SUMMARY: PT ORIENTED TO SELF. MORE VERBAL THIS SHIFT. REPO Q 2 PT ALLOWS. PT AGREED FOR PAIN MEDICATION BUT WHEN RN BROUGHT IT TO PT HE REFUSED IT. DENIES PAIN THIS SHIFT. NO HICCUPS NOTED. MALE PUREWICK IN PLACE. OSTOMY DRAINING APPROPRIATELY. BED IN LOW POSITION. CALL LIGHT WITHIN REACH.
--- NOTE | 2025-04-14 12:22 | NUR ---
PALLIATIVE CARE COMFORT CARE VISIT: REVIEWED MEDICATIONS AND SPOKE TO PLASTIC MOLDER/RN/CM TO DISCUSS CONCERNS PRIOR TO VISIT. PT NO LONGER HAVING UNCONTROLLED HICCUPS. PT AWAKE UPON ENTERING ROOM. PT NODS YES/NO TO QUESTIONS. HE APPEARS VERY PALE, RR ARE SLIGHTLY LABORED. PT DENIES DISCOMFORT. HE IS ABLE TO SIT UP IN BED. LEGS ARE QUITE EDEMOUS. HE IS DRINKING ICE WATER-TAKES SIPS DURING VISIT. NO S/S OF CHOKING. PT CONTINUES TO DENY NEEDS. PER RN/PLASTIC MOLDER NO NEEDS AT THIS TIME. CM REPORTS AWAITING USP MEDICAID FOR PLACEMENT.
--- NOTE | 2025-04-14 16:19 | NUR ---
INFORMED BY AID THAT CLIENT STATED HE WAS IN PAIN. WHEN I WENT TO THE CLIENTS ROOM, HE REFUSED TO ANSWER ANY AND ALL QUESTION ABOUT PAIN OR PAIN LEVEL. INFORMED CLIENT THAT I WOULD GET HIM SOME NORCO. WHEN I ARRIVED BACK IN THE ROOM AND PREPARED THE MEDICATION, THE CLIENT REFUSED TO TAKE IT, OR TO GIVE A REASON WHY HE WOULD NOT TAKE IT. MEDICATION WASTED IN PIXIS WITH ARLEEN FAULKNER.
[2025-04-14 19:41] VITALS: BP 145/113
--- NOTE | 2025-04-15 04:28 | NUR ---
SHIFT SUMMARY PT A&Ox1. COOPERATIVE WITH CARE BUT FLAT AND WITHDRAWN EXPRESSION. COLOSTOMY BAG DRAINING SOFT BROWN STOOL. PURWICK IN PLACE. PT APPEARS TO BE RESTING COMFORTABLY USING FLACC SCALE BUT IS PAINFUL WITH REPOSITIONS. NO ACUTE CHANGES. BED ALARM ON. BED IN LOWEST POSITION AND CALL LIGHT IN REACH.
[2025-04-15 07:53] VITALS: BP 134/90
--- NOTE | 2025-04-15 18:35 | NUR ---
SHIFT SUMMARY PT A&O TO SELF. PT ADMITTED FOR AMB DEHYDRATION ELEVATED HR. PT DECLINED PAIN MEDS FOR ME. PT ON COMFORT CARE. COMFORT CARE ASSESSMENTS COMPLETE. ORAL CARE COMPLETE. PT TURNED Q2 HOURS. PT HAS OSTOMY SITE C/D/I, HAS LITTLE OUTPUT. PT DECLINED BREAKFAST AND LUNCH, PT ATE SOME OF DINNER. PT ON ROOM AIR. RESPIRATIONS ARE EVEN AND SHALLOW. PT IN BED, BED IN LOWEST POSITION, CALL LIGHT IN REACH.
[2025-04-15 22:29] VITALS: BP 139/86
--- NOTE | 2025-04-16 04:31 | NUR ---
Shift Summary AOx self. Thought he was at [facility] but could not tell me who Svetlana was. Also thought it was June but did not know the year. Follows simple directions. Denies pain but when moving legs, patient does grimace. Meds whole, 1x w/water. Male wick in place, voiding well. Repositioning as patient allows. Quite swollen in his BLE's, both elevated on pillows. Bedrest. Call light in reach. Bed alarm on, bed in lowest position.
[2025-04-16 07:42] VITALS: BP 131/84
--- NOTE | 2025-04-16 19:13 | NUR ---
SHIFT SUMMARY PT A&OXSELF. PT ADMITTED FOR AMB DEHYDRATION ELEVATED HR. PT DECLINED PAIN MEDS FOR MOST OF SHIFT. THIS RN NOTICED SOME RESTLESSNESS WHEN REPOSITION, PT REPORTED OK FOR ROXANOL FOR BREATHING AND PAIN. PT HAS SHALLOW BREATHING. COMFORT CARE ASSESSMENTS COMPLETE. ORAL CARE COMPLETE. PTTURNED Q2 HOURS. PT HAS OSTOMY SITE C/D/I. PT HAS LITTLE OUTPUT. PT ON 2L OF O2 FOR COMFORT. RESPIRATIONS ARE EVEN AND SHALLOW. PT IN BED, BED IN LOWEST POSITION. CALL LIGHT IN REACH.
--- NOTE | 2025-04-16 19:44 | NUR ---
NOTE GOT VERBAL OK TO D/C CONT. PULSE OX FROM DR. GODINEZ.
[2025-04-16 21:22] VITALS: BP 149/87
--- NOTE | 2025-04-17 05:18 | NUR ---
Shift Summary Assumed care as of 04/16/25 @ 1900. AOx self, resting in bed comfortably. Seems withdrawn, minimal interaction with staff. Denies pain, but with repositioning and ROMs, patient grimaces and moans. Medicated for pain per EMAR with good effect. Male wick for comfort and draining via wall suction. Call light nearby. Bed in lowest position, alarmed.
[2025-04-17 07:50] VITALS: BP 138/89
--- NOTE | 2025-04-17 18:43 | NUR ---
SHIFT SUMMARY PT A&OXSELF. PT ADMITTED FOR AMB DEHYDRATION ELEVATED HR. PT DECLINED PAIN MEDS. PT HAS SHALLOW BREATHING. COMFORT CARE ASSESSMENT COMPLETE. ORAL CARE COMPLETE. PT TURNED Q2 HOURS. PT HAS OSTOMY C/D/I. PT HAS LITTLE OUTPUT. PT ON 2L OF O2 FOR COMFORT. RESPIRATIONS ARE EVEN. PT IN BED BED IN LOWEST POSITION BISHOP LIGHT IN REACH.
[2025-04-17 23:20] VITALS: BP 139/84
--- NOTE | 2025-04-18 04:55 | NUR ---
Shift Summary AO. Opening eyes spontaneously but not communicating with staff. Following some simple commands. Pure wick in place draining w/ wall suction. Grimaces w/ repositioning, otherwise, appears comfortable. Requires 2p assist w/ turning. Morphine given per EMAR. 2L O2 NC for comfort. Had some output via ostomy bag. Abdominal dressing remains c/d/i.
[2025-04-18 07:52] VITALS: BP 138/95
--- NOTE | 2025-04-18 15:34 | NUR ---
CHANGED ABD DRESSING PER ORDER REQUEST. PT TOLERATED WELL AND DENIED PAIN. VERY MILD DRAINAGE IN OLD BANDAGE FROM LOWER PART OF THE SUTURES WHICH HAD DEHISCED. BANDAID REPLACE ALL IS CLEAN DRY AND INTACT.
--- NOTE | 2025-04-18 16:46 | NUR ---
PT KEPT COMFORTABLE THROUGHOUT SHIFT. PT DENIED ANY PAIN TODAY AND HAS BEEN RESTING COMFORTABLE. PT TURNED Q2 HRS FOR REPOSITION. WILL CONTINUE TO MONITOR CLOSELY.
--- NOTE | 2025-04-19 04:32 | NUR ---
SHIFT SUMMARY: Pt is admitted for dehydration and elevated pulse and is a DNR. is alert but not able to make needs known. Able to answer some yes or not questions by shaking head. ADLs have been 1-2 depending on activity. No signs of pain noted by staff. Ostomy to LLQ is patent and draining brown loose stool. Appliance intact.
--- NOTE | 2025-04-19 16:05 | NUR ---
Spiritual care visit conducted. Patient says, "What's hanging?" and gives me the hang loose sign with his hand. I ask how he is hoding up and he says "doing okay." He does not say another word or make any answer any questions until I ask him if I could say a prayer for him and he says, "Please." I provided prayer and encouragement. He then stares back at the ceiling and doesn't engage. I will continue to remain avaialble to the patient.
--- NOTE | 2025-04-19 17:36 | NUR ---
PT HAS BEEN KEPT COMFORTABE TODAY AND MEDICATED PER EMAR. BANDAGE CHANGED AND INCISION CLEANED WITH NEW BANDAGE APPLIED. SCANT DISCHARGE ON THE LOWER PART OF ABD INCISION. PT TURNED Q2 HOURS AND REPOSTIONED TREATED FOR PAIN PER EMAR.WILL CONTINUE TO MONITOR.
--- NOTE | 2025-04-20 06:42 | NUR ---
SHIFT SUMMARY PT IS COMFORT CARE. ADMITTED WITH DEHYDRATION. LYING IN BED AT START OF SHIFT. HE IS NON-RESPONSIVE BUT OPENS EYES TO SOUNDS. PT MOVES ARMS AND HEAD AROUND, BUT IS OTHERWISE NOT ACTIVELY MOVING AROUND. HE HAS BEEN MEDICATED PER EMAR AND TURNED Q2 FOR COMFORT, TOLLERATED. HE IS PEACEFULLY LYING IN BED. PT MEDICATED PER EMAR PRIOR TO BEING REPOSITIONED. PERFORMED ORAL CARE. PT STILL UNABLE TO MAKE NEEDS KNOWN.
[2025-04-20 07:27] VITALS: BP 119/73
[2025-04-20 15:23] VITALS: BP 143/87
--- NOTE | 2025-04-20 17:53 | NUR ---
SHIFT SUMMARY PT CONT WITH COMFORT CARE. REPOSITION Q2HR. AND FREQUENT ORAL CARE. HELD PT ROUTINE PO MEDICATION THIS AM PT WAS NOT AWAKE ENOUGH TO TAKE SAFELY. PT NOTED TO BE NONVERBAL BUT RESPONDS TO YES NO QUESTINS WITH NODDING OF HEAD.
--- NOTE | 2025-04-21 15:48 | NUR ---
Spiritual care visit conducted. The patient is alert and starring at the [facility]. He tells me he is "not good" but then does n't respond to any clarifying questions. I step out of the room for ambia because his friend Kwadwo came to visit. I then meet with her and Palliative Care RN Haily and discuss Mr. Gann's options, goals and prognosis. After the conversation (See Haily's notes) I played therapeutic guitar music and prayed for the patient. The patient nodded approvingly when I got up to leave but no words were spoken from the patient.
--- NOTE | 2025-04-21 18:15 | NUR ---
SHIFT SUMMARY: NO NEW ACUTE CHANGES THIS SHIFT. PLAN TO CONTINUE COMFORT MEASURES. PATIENT MEDICATED PER EMAR. CALL LIGHT WITHIN REACH.
--- NOTE | 2025-04-22 05:32 | NUR ---
Shift Summary AOx1 to self. Increased roxanol dose to 15mg d/t painful turns aeb facial grimacing and moanings when repositioning. Mr. Gann was tachypneic as well so 2L NC oxygen applied for comfort. Reposition as patient tolerates. Nods yes/no to questions, sometimes, doesn't say anything at all. Dressing to abdominal incison changed, wound cleansed. Also changed ostomy bag and cleansed wafer attached to abdomen. Both were initialed and dated. Continues to be comfort care. Slight mottling noted to bilateral feet. WCTM.
--- NOTE | 2025-04-22 19:13 | NUR ---
SHIFT SUMMARY PT ORIENTED TO SELF ONLY, SLEPT MOST OF DAY. Q2 TURNS, GRIMACES WITH TURNING. REFUSED ALL MEALS. COUGH AND INCREASED SECRETIONS NOTED THIS EVENING WITH TACHYPNEA, ROXINOL AND ATROPINE GIVEN WITH GOOD EFFECT.
--- NOTE | 2025-04-23 04:58 | NUR ---
SHIFT SUMMARY: Pt is admitted for dehydration and elevated pulse and is a DNR. is on comfort care. has not really been alert and not able to make needs known. ADLs have been 1-2 depending on activity. Some pain noted and was given PRN medications. Ostomy to LLQ is patent and draining brown loose stool. Appliance intact. Purewick in place and drawing scant amounts of dark color urine.
--- NOTE | 2025-04-23 08:10 | NUR ---
REPOSITIONED, PUREWICK REMOVED DUE TO LITTLE OUTPUT. OSOTMY IN PLACE, NO OUTPUT AT THIS TIME. ONLY RESPONSIVE TO PAINFUL STIMULI AT THIS TIME. ORAL CARE PERFORMED. MIDLINE INCISION COVERED WITH GAUZE AND TEGADERM, NO SHADOWING OR DRAINAGE NOTED. CALL LIGHT IN REACH.
--- NOTE | 2025-04-23 14:54 | NUR ---
CALL PLACED TO AT [id number] REPORTING NO HEART TONES NOTED.
--- NOTE | 2025-04-23 15:10 | NUR ---
CONTACTED CELE, NEXT OF KIN ON LIST, INFORMED HER OF PATIENT PASSING. STATED SHE DID NOT WANT TO COME IN. PALLIATIVE AND CHARGE MADE AWARE. NOBODY AVAILABLE TO MAKE FINAL DECISIONS FOR PATIENT. QA [employer]ATION [employer]INE[employer] HOME TO BE NOTIFIED. PATIENT LEAKING COPIOUS AMOUNTS OF GREEN FLUID FROM NOSE AND MOUTH, SUCTIONED 500MLS OUT. POST MORTEM CARES DONE.
--- NOTE | 2025-04-23 17:29 | NUR ---
PATIENT PICKED UP AT [id number] BY SUGEY AT [facility].
== END 2025-04-23 13:48 | DRG 853 ==
LOC: ER 01:41 → MEDS 15:35 → PCU 15:35 → ERHOLD 15:35 → PCU 16:37 → ICUE 04-05 14:36 → PCU 04-07 19:53 → MEDS 04-10 22:57
PROVIDERS: Anesthesiology; Emergency Medicine; Family Medicine; Surgery; ADMIT Internal Medicine
PROC: 3E03329 Introduction of Other Anti-infective into Peripheral Vein, Percutaneous Approach (ICD-10-PCS; 2025-04-04)
PROC: 0FB20ZX Excision of Left Lobe Liver, Open Approach, Diagnostic (ICD-10-PCS; principal; 2025-04-05 12:30)
PROC: 0W9G0ZZ Drainage of Peritoneal Cavity, Open Approach (ICD-10-PCS; principal; 2025-04-05 12:30)
PROC: 0D1L0Z4 Bypass Transverse Colon to Cutaneous, Open Approach (ICD-10-PCS; principal; 2025-04-05 12:30)
DX: A41.9 Sepsis, unspecified organism (principal); K65.1 Peritoneal abscess; C19 Malignant neoplasm of rectosigmoid junction; C78.7 Secondary malignant neoplasm of liver and intrahepatic bile duct; K56.609 Unspecified intestinal obstruction, unspecified as to partial versus complete obstruction; C78.02 Secondary malignant neoplasm of left lung; C78.01 Secondary malignant neoplasm of right lung; Z66 Do not resuscitate; N17.9 Acute kidney failure, unspecified; N13.2 Hydronephrosis with renal and ureteral calculous obstruction; Z51.5 Encounter for palliative care; I48.91 Unspecified atrial fibrillation; G31.84 Mild cognitive impairment of uncertain or unknown etiology; F17.210 Nicotine dependence, cigarettes, uncomplicated; J43.9 Emphysema, unspecified; J84.10 Pulmonary fibrosis, unspecified; E87.6 Hypokalemia; Z79.899 Other long term (current) drug therapy
CPT/HCPCS: 36415; 71046; 74177; 76770; 80053; 82947; 83605; 83690; 83735; 83880; 84100; 84484; 85025; 85027; 86850; 86900; 86901; 87040; 87070; 87075; 87077; 87186; 87205; 88307; 88341; 88342; 93005; 93010; 94762; 96365; 96366; 96375; 96376; 99285-25; A9270; C1751; J0696; J1171; J1644; J2250; J2405; J2470; J2543; J2704; J2765; J3010; J3370; J3411; J3475; J3480; J7030; J7040; J7050; J7120; Q9967